=== PATIENT | male | born 1970 | race Caucasian/White ===

== ENCOUNTER 2020-01-15 11:15 | Day surgery (SDC) | payer OTHER ==
[2020-01-15] MEDS ORDERED: GI COCKTAIL 45 ML (Maalox/Lidocaine) PO ONE (11:37)
[2020-01-15] MEDS ORDERED: MORPHINE SULFATE 4 MG INJ IV ONE (11:37)
[2020-01-15] MEDS ORDERED: Zofran 4 MG/2 ML VIAL IV ONE (11:37)
[2020-01-15] MEDS ORDERED: Sodium Chloride 0.9% 1000 ML 1,000 ML IV STA (11:37)
--- NOTE | 2020-01-15 11:39 | ERPHSYRPT ---
- History of Present Illness Time Seen by Provider: 01/15/20 11:25 Historian: patient Patient Subjective Stated Complaint: Pt states that since he woke up this morning that he has vomited 3 times, broke out into a cold sweat, and is having really severe heartburn, ate crackers this morning and vomited them up Triage Nursing Assessment: Pt was brought to the ER by his daughter, pt appears uncomfortable in the medial lower gastric region, pain with palpatation to that area, hypertensive, no edema, no cough, rates pain 8-9/10, pulses normal Physician History: 49 years old generally healthy male presented in the ER with chief complaint of epigastric pain sudden onset around 6:45 AM which woke him up from sleep. Associated with nausea and 3 episodes of nonprojectile, nonbilious vomiting with no hematemesis. Patient described this as a dull aching to sharp pain which is aggravated with movements and palpation and no significant relieving factors. Currently patient is very nauseated. Denies any chest pain palpitations or shortness of breath. Denies any history of GERD/acid reflux. Timing/Duration: today, sudden, worse Activities at Onset: sleep Quality: aching, burning, sharpness Abdominal Pain Onset Location: LUQ, epigastric Pain Radiation: no radiation Severity of Pain-Max: severe Severity of Pain-Current: severe Modifying Factors: Improves With: movement Associated Symptoms: nausea, vomiting Previous symptoms: no prior history Allergies/Adverse Reactions: No Known Drug Allergies Allergy (Verified 01/15/20 11:29) Hx Influenza Vaccination/Date Given: No Hx Pneumococcal Vaccination/Date Given: No Travel Risk - International Travel Have you traveled outside of the country in past 3 weeks: No Have you or anyone close to you been diagnosed with or: No Do your reside in a community with a known COVID-19 case?: Yes If Yes where:: [place] - Coronavirus Screening Has patient experienced Coronavirus symptoms: No - Review of Systems Constitutional: No Symptoms Eyes: No Symptoms Ears, Nose, & Throat: No Symptoms Respiratory: No Symptoms Cardiac: No Symptoms Abdominal/Gastrointestinal: Abdominal Pain, Nausea, Vomiting Genitourinary Symptoms: No Symptoms Musculoskeletal: No Symptoms Skin: No Symptoms Neurological: No Symptoms Psychological: No Symptoms Endocrine: No Symptoms Hematologic/Lymphatic: No Symptoms Immunological/Allergic: No Symptoms - Past Medical History Pertinent Past Medical History: No - Past Surgical History Past Surgical History: Yes Male Surgical History: Vasectomy Other Surgical History: wisdom teeth removed, no problems with anesthesia - Social History Smoking Status: Never smoker Exposure to second hand smoke: No Drug Use: none Patient Lives Alone: No - Nursing Vital Signs Nursing Vital Signs: Initial Vital Signs Pulse Rate 61 01/15/20 11:19 Respiratory Rate 12 01/15/20 11:19 Blood Pressure 175/100 01/15/20 11:19 O2 Sat by Pulse Oximetry 100 01/15/20 11:19 Pain Scale Pain Intensity 6 - Physical Exam General Appearance: no apparent distress Eye Exam: PERRL/EOMI, eyes nml inspection Ears, Nose, Throat Exam: normal ENT inspection, pharynx normal Neck Exam: normal inspection, supple, full range of motion Respiratory Exam: normal breath sounds, lungs clear, No chest tenderness Cardiovascular Exam: regular rate/rhythm, normal heart sounds Gastrointestinal/Abdomen Exam: soft, normal bowel sounds, tenderness (Epigastric ), No distention, No guarding Back Exam: normal inspection Extremity Exam: normal inspection Neurologic Exam: alert, oriented x 3, cooperative, [employer] II-XII nml as tested, normal mood/affect Skin Exam: normal color SpO2 Interpretation: normal SpO2: 100 O2 Delivery: Room Air - Course Nursing assessment & vital signs reviewed: Yes EKG Interpreted by Me: RATE, Sinus Rhythm, NORMAL AXIS, NORMAL INTERVALS, NORMAL QRS Ordered Tests: Active Orders 24 hr Category Date Time Status EKG-ER Only STAT Care 01/15/20 11:37 Active IV Insertion STAT Care 01/15/20 11:37 Active NPO (ED) STAT Care 01/15/20 11:37 Active ABDOMEN AND PELVIS W CONTRAST [CT] Stat Exams 01/15/20 11:38 Completed GALLBLADDER [US] Stat Exams 01/15/20 14:37 Completed AMYLASE Stat Lab 01/15/20 12:30 Completed CBC W DIFF Stat Lab 01/15/20 12:30 Completed CMP Stat Lab 01/15/20 12:30 Completed LIPASE Stat Lab 01/15/20 12:30 Completed TROPONIN Q3H Lab 01/15/20 12:30 Completed TROPONIN Q3H Lab 01/15/20 14:45 Completed UA W/RFX UR CULTURE Stat Lab 01/15/20 13:04 Completed Medication Summary Generic Name Dose Route Start Last Admin Trade Name Freq PRN Reason Stop Dose Admin Sodium Chloride 1,000 mls @ 125 mls/hr 01/15/20 15:00 01/15/20 14:49 Sodium Chloride 0.9% 1000 Ml IV 02/14/20 14:59 125 mls/hr .Q8H ASHLEY Administration Discontinued Medications Generic Name Dose Route Start Last Admin Trade Name Freq PRN Reason Stop Dose Admin Al Hydrox/Mg Hydrox/Simethicone Confirm 01/15/20 11:44 Maalox Es 30 Ml Unit Dose Administered 01/15/20 11:45 Dose 30 ml .ROUTE .STK-MED ONE Bupivacaine HCl Confirm 01/15/20 17:09 Sensorcaine 0.25% 10 Ml Administered 01/15/20 17:10 Dose 10 ml .ROUTE .STK-MED ONE Cefazolin Sodium Confirm 01/15/20 17:16 Kefzol 1 Gm Administered 01/15/20 17:17 Dose 2 g .ROUTE .STK-MED ONE Dexamethasone Sodium Phosphate Confirm 01/15/20 16:33 Decadron 4 Mg Inj Administered 01/15/20 16:34 Dose 8 mg .ROUTE .STK-MED ONE Famotidine 20 mg 01/15/20 13:09 01/15/20 13:13 Pepcid 20 Mg Vial IV 01/15/20 13:10 20 mg STAT ONE Administration Famotidine Confirm 01/15/20 13:12 Pepcid 20 Mg Vial Administered 01/15/20 13:13 Dose 20 mg IV .STK-MED ONE Fentanyl Citrate Confirm 01/15/20 16:33 Sublimaze 100 Mcg/2 Ml Administered 01/15/20 16:34 Dose 100 mcg .ROUTE .STK-MED ONE Hydromorphone HCl 1 mg 01/15/20 13:09 01/15/20 13:11 Hydromorphone 1 Mg/Ml Ampule IV 01/15/20 13:10 1 mg STAT ONE Administration Hydromorphone HCl Confirm 01/15/20 13:10 Hydromorphone 1 Mg/Ml Ampule Administered 01/15/20 13:11 Dose 1 mg .ROUTE .STK-MED ONE Hydromorphone HCl 1 mg 01/15/20 15:27 01/15/20 15:37 Hydromorphone 1 Mg/Ml Ampule IV 01/15/20 15:28 1 mg STAT ONE Administration Hydromorphone HCl Confirm 01/15/20 15:36 Hydromorphone 1 Mg/Ml Ampule Administered 01/15/20 15:37 Dose 1 mg .ROUTE .STK-MED ONE Sodium Chloride 1,000 mls @ 999 mls/hr 01/15/20 11:37 01/15/20 13:20 Sodium Chloride 0.9% 1000 Ml IV 01/15/20 12:37 Infused .Q1H1M STA Infusion Sodium Chloride Confirm 01/15/20 11:44 Sodium Chloride 0.9% 1000 Ml Administered 01/15/20 11:45 Dose 1,000 mls @ ud .ROUTE .STK-MED ONE Sodium Chloride Confirm 01/15/20 14:47 Sodium Chloride 0.9% 1000 Ml Administered 01/15/20 14:48 Dose 1,000 mls @ ud .ROUTE .STK-MED ONE Lactated Ringer's Confirm 01/15/20 15:55 Lactated Ringers Administered 01/15/20 15:56 Dose 1,000 mls @ ud IV .STK-MED ONE Lactated Ringer's Confirm 01/15/20 17:09 Lactated Ringers Administered 01/15/20 17:10 Dose 1,000 mls @ ud IV .STK-MED ONE Ketorolac Tromethamine Confirm 01/15/20 16:33 Toradol 30 Mg Injection Administered 01/15/20 16:34 Dose 30 mg .ROUTE .STK-MED ONE Lidocaine HCl Confirm 01/15/20 11:43 Xylocaine Hcl Viscous * Administered 01/15/20 11:44 Dose 15 ml .ROUTE .STK-MED ONE Lidocaine HCl Confirm 01/15/20 16:33 Xylocaine-Mpf 2% 5 Ml Vial Administered 01/15/20 16:34 Dose 5 ml .ROUTE .STK-MED ONE Magnesium Hydroxide 45 ml 01/15/20 11:37 01/15/20 11:53 Gi Cocktail 45 Ml (Maalox/Lidocaine) PO 01/15/20 11:38 45 ml STAT ONE Administration Morphine Sulfate 4 mg 01/15/20 11:37 01/15/20 11:53 Morphine Sulfate 4 Mg Inj IV 01/15/20 11:38 4 mg STAT ONE Administration Morphine Sulfate Confirm 01/15/20 11:43 Morphine Sulfate 4 Mg Inj Administered 01/15/20 11:44 Dose 4 mg .ROUTE .STK-MED ONE Ondansetron HCl 4 mg 01/15/20 11:37 01/15/20 11:53 Zofran 4 Mg/2 Ml Vial IV 01/15/20 11:38 4 mg STAT ONE Administration Ondansetron HCl Confirm 01/15/20 11:43 Zofran 4 Mg/2 Ml Vial Administered 01/15/20 11:44 Dose 4 mg .ROUTE .STK-MED ONE Ondansetron HCl Confirm 01/15/20 16:32 Zofran 4 Mg/2 Ml Vial Administered 01/15/20 16:33 Dose 4 mg .ROUTE .STK-MED ONE Ondansetron HCl Confirm 01/15/20 16:33 Zofran 4 Mg/2 Ml Vial Administered 01/15/20 16:34 Dose 4 mg .ROUTE .STK-MED ONE Ondansetron HCl Confirm 01/15/20 18:42 Zofran 4 Mg/2 Ml Vial Administered 01/15/20 18:43 Dose 4 mg .ROUTE .STK-MED ONE Pantoprazole Sodium 40 mg 01/15/20 14:13 01/15/20 14:40 Protonix 40 Mg Iv IV 01/15/20 14:14 40 mg STAT ONE Administration Pantoprazole Sodium Confirm 01/15/20 14:38 Protonix 40 Mg Iv Administered 01/15/20 14:39 Dose 40 mg IV .STK-MED ONE Phenylephrine HCl Confirm 01/15/20 17:44 Phenylephrine Hcl Administered 01/15/20 17:45 Dose 10 mg .ROUTE .STK-MED ONE Propofol Confirm 01/15/20 16:33 Diprivan 200 Mg/20 Ml Administered 01/15/20 16:34 Dose 200 mg IV .STK-MED ONE Rocuronium [place] Confirm 01/15/20 16:33 Zemuron 100 Mg/10 Ml Administered 01/15/20 16:34 Dose 50 mg .ROUTE .STK-MED ONE Succinylcholine Chloride Confirm 01/15/20 16:33 Quelicin Fliptop 200 Mg/10 Ml Administered 01/15/20 16:34 Dose 100 mg .ROUTE .STK-MED ONE Sugammadex Sodium Confirm 01/15/20 16:33 Bridion 200mg/2ml Administered 01/15/20 16:34 Dose 200 mg IV .STK-MED ONE Lab/Rad Data: Laboratory Result Diagrams 01/15/20 12:30 01/15/20 12:30 Laboratory Results 01/15/20 01/15/20 01/15/20 Range/Units 14:45 13:04 12:30 WBC (4.0-10.5) K/mm3 RBC (4.1-5.6) M/mm3 Hgb (12.5-18.0) gm/dl Hct (42-50) % MCV (78-100) fl MCH (26-32) pg MCHC (32-36) g/dl RDW (11.5-14.0) % Plt Count (150-450) K/mm3 MPV (7.5-11.0) fl Gran % (36.0-66.0) % Eos # (Auto) (0-0.5) Absolute Lymphs (auto) (1.0-4.6) Absolute Monos (auto) (0.0-1.3) Lymphocytes % (24.0-44.0) % Monocytes % (0.0-12.0) % Eosinophils % (0.00-5.0) % Basophils % (0.0-0.4) % Absolute Granulocytes (1.4-6.9) Basophils # (0-0.4) Sodium (137-145) mmol/L Potassium (3.5-5.1) mmol/L Chloride (98-107) mmol/L Carbon Dioxide (22-30) mmol/L Anion Gap (5-15) MEQ/L BUN (9-20) mg/dL Creatinine (0.66-1.25) mg/dL Estimated GFR ML/MIN Glucose (74-106) mg/dL Calcium (8.4-10.2) mg/dL Total Bilirubin (0.2-1.3) mg/dL AST (17-59) U/L ALT (0-50) U/L Alkaline Phosphatase (38-126) U/L Troponin I < 0.012 < 0.012 (0.000-0.034) ng/mL Serum Total Protein (6.3-8.2) g/dL Albumin (3.5-5.0) g/dL Amylase (30-110) U/L Lipase (23-300) U/L Urine Color YELLOW (YELLOW) Urine Appearance CLEAR (CLEAR) Urine pH 6.0 (5-6) Ur Specific [place] 1.034 (1.005-1.025) Urine Protein NEGATIVE (Negative) Urine Ketones NEGATIVE (NEGATIVE) Urine Blood SMALL (0-5) Arnoldo/ul Urine Nitrite NEGATIVE (NEGATIVE) Urine Bilirubin NEGATIVE (NEGATIVE) Urine Urobilinogen NEGATIVE (0-1) mg/dL Ur Leukocyte Esterase NEGATIVE (NEGATIVE) Urine WBC (Auto) NONE (0-5) /HPF Urine RBC (Auto) NONE (0-2) /HPF U Epithel Cells (Auto) NONE (FEW) /HPF Urine Bacteria (Auto) NONE (NEGATIVE) /HPF Urine Mucus (Auto) SLIGHT (NEGATIVE) /HPF Urine Culture Reflexed NO (NO) Urine Glucose NEGATIVE (NEGATIVE) mg/dL 01/15/20 01/15/20 Range/Units 12:30 12:30 WBC 11.6 H (4.0-10.5) K/mm3 RBC 5.28 (4.1-5.6) M/mm3 Hgb 15.2 (12.5-18.0) gm/dl Hct 46.7 (42-50) % MCV 88.4 (78-100) fl MCH 28.8 (26-32) pg MCHC 32.5 (32-36) g/dl RDW 14.7 H (11.5-14.0) % Plt Count 288 (150-450) K/mm3 MPV 11.2 H (7.5-11.0) fl Gran % 81.6 H (36.0-66.0) % Eos # (Auto) 0.04 (0-0.5) Absolute Lymphs (auto) 1.42 (1.0-4.6) Absolute Monos (auto) 0.64 (0.0-1.3) Lymphocytes % 12.3 L (24.0-44.0) % Monocytes % 5.5 (0.0-12.0) % Eosinophils % 0.3 (0.00-5.0) % Basophils % 0.3 (0.0-0.4) % Absolute Granulocytes 9.45 H (1.4-6.9) Basophils # 0.04 (0-0.4) Sodium 140 (137-145) mmol/L Potassium 4.5 (3.5-5.1) mmol/L Chloride 101 (98-107) mmol/L Carbon Dioxide 30 (22-30) mmol/L Anion Gap 13.6 (5-15) MEQ/L BUN 17 (9-20) mg/dL Creatinine 0.75 (0.66-1.25) mg/dL Estimated GFR > 60.0 ML/MIN Glucose 125 H (74-106) mg/dL Calcium 9.4 (8.4-10.2) mg/dL Total Bilirubin 0.40 (0.2-1.3) mg/dL AST 24 (17-59) U/L ALT 33 (0-50) U/L Alkaline Phosphatase 98 (38-126) U/L Troponin I (0.000-0.034) ng/mL Serum Total Protein 7.4 (6.3-8.2) g/dL Albumin 4.1 (3.5-5.0) g/dL Amylase 46 (30-110) U/L Lipase 99 (23-300) U/L Urine Color (YELLOW) Urine Appearance (CLEAR) Urine pH (5-6) Ur Specific [place] (1.005-1.025) Urine Protein (Negative) Urine Ketones (NEGATIVE) Urine Blood (0-5) Arnoldo/ul Urine Nitrite (NEGATIVE) Urine Bilirubin (NEGATIVE) Urine Urobilinogen (0-1) mg/dL Ur Leukocyte Esterase (NEGATIVE) Urine WBC (Auto) (0-5) /HPF Urine RBC (Auto) (0-2) /HPF U Epithel Cells (Auto) (FEW) /HPF Urine Bacteria (Auto) (NEGATIVE) /HPF Urine Mucus (Auto) (NEGATIVE) /HPF Urine Culture Reflexed (NO) Urine Glucose (NEGATIVE) mg/dL - Progress Progress: pain not gone completely, re-examined Progress Note: 01/15/20 14:10 49 years old is evaluated for epigastric pain with vomiting. He is given IV fluid along with GI cocktail and pain medications, on reevaluation pain is not much improved and I have given him another dose of pain medication along with Pepcid and pain is improving but not completely gone. I have obtained EKG which showed sinus rhythm with no acute ST changes and I have repeated it after 2 hours with out any significant change. Unremarkable troponin and chemistries. White count is minimally elevated. I have obtained CT with contrast which showed hiatal hernia but no other acute intra-abdominal findings. Discussed with : Karsten Counseled pt/family regarding: lab results, diagnosis, need for follow-up, rad results - Departure Departure Disposition: Observation Clinical Impression: Hiatal hernia with gastroesophageal reflux disease and esophagitis, Gall stones Condition: Stable Critical Care Time: No
[2020-01-15] MEDS ORDERED: MORPHINE SULFATE 4 MG INJ ONE (11:43)
[2020-01-15] MEDS ORDERED: Zofran 4 MG/2 ML VIAL ONE ×4 (11:43→18:42)
[2020-01-15] MEDS ORDERED: XYLOCAINE HCl Viscous ONE (11:43)
[2020-01-15] MEDS ORDERED: Sodium Chloride 0.9% 1000 ML 1,000 ML ONE ×2 (11:44→14:47)
[2020-01-15] MEDS ORDERED: MAALOX ES 30 ML UNIT DOSE ONE (11:44)
--- NOTE | 2020-01-15 12:39 | XRAY ---
Indication: Epigastric pain and vomiting. Multiple contiguous axial images obtained through the abdomen and pelvis using 80 cc Isovue 370 contrast only. Comparison: None Lung bases are clear. Heart is borderline enlarged. Small hiatal hernia. Noncontrasted stomach and bowel loops appear nonobstructed. Normal appendix. Minimal sigmoid diverticulosis without diverticulitis. No free fluid/air. Mild diffusely fatty 20 cm hepatomegaly. 2.2 cm left midpole renal cyst. Remaining liver, gallbladder, pancreas, spleen, adrenal glands, kidneys, ureters, bladder, and aorta appear unremarkable. No pathologic retroperitoneal lymphadenopathy. Osseous structures intact with minimal degenerative changes throughout the spine and tiny multilevel thoracolumbar Schmorl nodes. 8 mm right innominate bone island adjacent to the SI joint. No ventral or inguinal hernias. Impression: 1. Small hiatal hernia, minimal sigmoid diverticulosis, left renal cyst, mild fatty hepatomegaly, and chronic bony findings. 2. Remaining CT abdomen/pelvis with contrast exam is negative.
[2020-01-15 12:50] LABS: Absolute Neutrophil Ct (ANC) 9.45 (1.4-6.9); BASOPHIL % 0.3 % (0.0-0.4); Basophil (Absolute #) 0.04 (0-0.4); Eosinophil % 0.3 % (0.00-5.0); Eosinophil (Absolute #) 0.04 (0-0.5); Hematocrit 46.7 % (42-50); Hemoglobin 15.2 gm/dl (12.5-18.0); Lymphocyte (Absolute #) 1.42 (1.0-4.6); Lymphocytes % 12.3 % (24.0-44.0); Mean Cell Volume 88.4 fl (78-100); Mean Corpuscular Hemoglobin 28.8 pg (26-32); Mean Corpuscular Hgb Concent. 32.5 g/dl (32-36); Mean Platelet Volume 11.2 fl (7.5-11.0); Monocyte (Absolute #) 0.64 (0.0-1.3); Monocytes % 5.5 % (0.0-12.0); Neutrophil % 81.6 % (36.0-66.0); Platelet Count 288 K/mm3 (150-450); Red Blood Count 5.28 M/mm3 (4.1-5.6); Red Cell Distribution Width 14.7 % (11.5-14.0); White Blood Count 11.6 K/mm3 (4.0-10.5)
[2020-01-15 13:00] LABS: ALBUMIN 4.1 g/dL (3.5-5.0); ALKALINE PHOSPHATASE 98 U/L (38-126); AMYLASE 46 U/L (30-110); ANION GAP 13.6 MEQ/L (5-15); BLOOD UREA NITROGEN 17 mg/dL (9-20); CHLORIDE 101 mmol/L (98-107); Calcium 9.4 mg/dL (8.4-10.2); Carbon Dioxide 30 mmol/L (22-30); Creatinine 1 0.75 mg/dL (0.66-1.25); Glucose 125 mg/dL (74-106); LIPASE 99 U/L (23-300); Potassium 4.5 mmol/L (3.5-5.1); SGOT/AST 24 U/L (17-59); SGPT/ALT 33 U/L (0-50); SODIUM 140 mmol/L (137-145); Total Protein 7.4 g/dL (6.3-8.2)
[2020-01-15] MEDS ORDERED: Hydromorphone 1 mg/ml Ampule IV ONE ×2 (13:09→15:27)
[2020-01-15] MEDS ORDERED: Pepcid 20 MG VIAL IV ONE ×2 (13:09→13:12)
[2020-01-15] MEDS ORDERED: Hydromorphone 1 mg/ml Ampule ONE ×2 (13:10→15:36)
[2020-01-15 13:45] LABS: Appearance CLEAR (CLEAR); Bilirubin NEGATIVE (NEGATIVE); Blood SMALL Ery/ul (0-5); Glucose NEGATIVE (NEGATIVE); Ketones NEGATIVE (NEGATIVE); Leukocyte Esterase NEGATIVE (NEGATIVE); Mucus SLIGHT /HPF (NEGATIVE); Nitrite NEGATIVE (NEGATIVE); Protein,Urine Dip NEGATIVE (Negative); Specific Gravity 1.034 (1.005-1.025); Urobilinogen NEGATIVE mg/dL (0-1)
[2020-01-15] MEDS ORDERED: PROTONIX 40 MG IV IV ONE ×2 (14:13→14:38)
[2020-01-15] MEDS ORDERED: Sodium Chloride 0.9% 1000 ML 1,000 ML IV SCH (15:00)
--- NOTE | 2020-01-15 15:34 | XRAY ---
Indication: Pain. Cholecystitis. Two-dimensional gallbladder sonogram performed. Comparison: None Gallbladder normally distended with a few tiny gallstones in the dependent portion, largest 1.5 cm. No abnormal gallbladder wall thickening or pericholecystic fluid. Common bile duct measures 3.9 mm. No intrahepatic biliary distention. Enlarged fatty liver measuring 20 cm in greatest dimension. Remaining visualized pancreas and right kidney sonographically unremarkable. Right kidney measures 13.8 cm in length. No ascites. Impression: Cholelithiasis without cholecystitis or biliary distention. Fatty hepatomegaly.
[2020-01-15] MEDS ORDERED: Lactated Ringers 1,000 ML IV ONE ×2 (15:55→17:09)
[2020-01-15] MEDS ORDERED: DIPRIVAN 200 MG/20 ML IV ONE (16:33)
[2020-01-15] MEDS ORDERED: BRIDION 200MG/2ML IV ONE (16:33)
[2020-01-15] MEDS ORDERED: Quelicin Fliptop 200 MG/10 ML ONE (16:33)
[2020-01-15] MEDS ORDERED: Xylocaine-Mpf 2% 5 Ml Vial ONE (16:33)
[2020-01-15] MEDS ORDERED: Zemuron 100 MG/10 ML ONE (16:33)
[2020-01-15] MEDS ORDERED: TORAdol 30 mg Injection ONE (16:33)
[2020-01-15] MEDS ORDERED: SUBLIMAZE 100 MCG/2 ML ONE (16:33)
[2020-01-15] MEDS ORDERED: Decadron 4 MG INJ ONE (16:33)
[2020-01-15] MEDS ORDERED: Sensorcaine 0.25% 10 ML ONE (17:09)
[2020-01-15] MEDS ORDERED: KEFZOL 1 GM ONE (17:16)
[2020-01-15] MEDS ORDERED: PHENYLEPHRINE HCL ONE (17:44)
[2020-01-15] MEDS ORDERED: Phenergan 25 MG INJ ONE (19:14)
[2020-01-15] MEDS ORDERED: NORCO 5/325 MG PO PRN (19:42)
[2020-01-15] MEDS ORDERED: MORPHINE SULFATE 4 MG INJ IV PRN (19:44)
[2020-01-15] MEDS ORDERED: Zofran 4 MG/2 ML VIAL IV PRN (19:44)
[2020-01-15] MEDS ORDERED: NORCO 5/325 MG ONE (20:35)
[2020-01-15 22:01] VITALS: BP 131/88; PULSE 78
[2020-01-15 22:03] VITALS: O2SAT 97
--- NOTE | 2020-01-18 07:57 | HP ---
CONSULT DATE: 01/15/2020 HISTORY: The patient is a 49 year-old gentleman with history of sleep apnea, a little bit overweight had pizza last night and had snack later. He developed some severe epigastric pain associated with some nausea. He had some vomiting. He has been under a lot of stress recently with multiple loans associated with his job. He came in and the emergency room worked him up. Initial CT was fairly unremarkable. He had a very small hiatal hernia, cyst on his kidney. There might be question whether he had stones in his gallbladder but they were not severely calcified. His cardiac etiology was ruled out per the emergency room physician. Troponins were negative. His liver function test and lipase were normal. I asked the emergency room to order a gallbladder ultrasound. He does have cholelithiasis, there was not significant wall thickening or fluid around the gallbladder but he had a 1.5 cm stone and some smaller stones. I came down to evaluate him. PAST MEDICAL HISTORY: Sleep apnea. He is a little bit overweight. He has some seasonal allergies. PAST SURGICAL HISTORY: He had an upper endoscopy in the past. ALLERGIES: NKDA. FAMILY HISTORY: Cardiomyopathy. Diabetes. Prostate cancer. History of some lymphoma. History of breast cancer in an aunt. Lung cancer in grandparents. SOCIAL HISTORY: He denies smoking. No alcohol abuse. REVIEW OF SYSTEMS: Fourteen systems reviewed. He had some back problems in the past. Otherwise as noted sleep apnea and he is a little bit overweight otherwise he denies any cardiac or chronic lung disease or other issues. PHYSICAL EXAMINATION: GENERAL: Uncomfortable. HEENT: Sclera nonicteric. NECK: No JVD. CHEST: Equal excursion, nonlabored breathing. CVS: Regular rhythm and pulse. ABDOMEN: He is a little bit overweight. He has got tenderness in epigastrium and over right upper quadrant over his gallbladder. EXTREMITIES: No significant edema. NEURO: Alert, moving extremities symmetrically. No gross motor deficits noted. IMPRESSION: Acute epigastric pain, normal liver function test. He has some gallstones but there is no wall thickening or pericholecystic fluid which often happens when there is severity of this pain. It has been unrelenting since early this morning. Question whether he could also have peptic ulcer disease, esophagitis, gastritis or other etiology in addition versus acute exacerbation of biliary colic, cholelithiasis. I had a long discussion with the patient risks and benefits. I feel he would benefit from upper endoscopy to rule out ulcer disease or other etiology as well as proceeding with laparoscopic cholecystectomy possible open. Risks and benefits explained in detail but not limited to bleeding or infection, risk of trocar injury or hernia, risk of bowel, bladder or blood vessel injury, small risk of bile leak, bile duct injury, retained stone or sludge possibly requiring further procedure either open or ERCP, general risk of anesthesia, deep venous thrombosis, pulmonary embolism, pneumonia, perioperative risk of aches, pains, bloating, constipation and/or loose stools possibly even chronic in nature, possibility of no improvement in his pain, possible need for open procedure as well as risk of endoscopy, risk of bowel injury, perforation or anesthesia, deep venous thrombosis, pulmonary embolism, pneumonia, possible inability to diagnose the etiology of his symptoms. He is agreeable. He prefers to go ahead and get his gallbladder out at the same time so will proceed with laparoscopic cholecystectomy possible open as well as EGD possible biopsy when OR time available.
--- NOTE | 2020-01-18 08:29 | OP ---
SURGERY DATE/TIME: 01/15/2020 7995 PREOPERATIVE DIAGNOSIS: Intractable epigastric right upper quadrant pain. POSTOPERATIVE DIAGNOSES: 1) Acute Exacerbation chronic cholecystitis, cholelithiasis, gallbladder hydrops. 2) Mild gastritis. 3) Minimal hiatal hernia. PROCEDURES: 1) Laparoscopic cholecystectomy. 2) Esophagogastroduodenoscopy with cold biopsy to the antrum. SURGEON: Dr. Anibal Montalvo. ANESTHESIA: General. ESTIMATED BLOOD LOSS: Minimal. INDICATIONS: As noted above. Risks and benefits explained in detail but not limited to and consent obtained. DESCRIPTION OF PROCEDURE AND FINDINGS: The patient is taken to the operating room. General anesthesia was induced. Abdomen prepped and draped in usual sterile fashion. As he had the intractable pain although the gallbladder ultrasound did not show wall thickening or pericholecystic fluid and only some tiny stones, with his degree of symptoms it was unclear whether he had ulcer disease or biliary colic given his symptoms. It was felt he would benefit from upper and lower endoscopy. He was taken to the operating room. Consent had been obtained. General anesthesia was induced. Abdomen prepped and draped in usual sterile fashion. After official time out and no disagreement with planned procedure, it was elected to avoid insufflation and extra gas in the stomach to avoid limiting the view laparoscopically, we did the gallbladder first. A transverse incision made at the supraumbilical area. Fascia grasped and pulled upward. Veress needle inserted and tested with saline. Pneumoperitoneum accomplished insufflating opening pressure of 0-15. A 5 mm bladeless port and camera inserted without difficulty followed by two - 5 mm right upper quadrant ports and 11 mm epigastric port as well as additional 12 port. The gallbladder was quite distended. Decompressed through separate stab wound along costal margin. 40 cc of hydrops removed allowing the gallbladder to be grasped. Dissected posterior, lateral to anterior fashion. It was quite significantly inflamed. Slowly and carefully cystic duct and main cystic artery isolated until the critical view obtained both anteriorly and posteriorly. Once this was accomplished, it was elected to use a large clipper. Therefore the 12 port had been placed in the epigastrium as the gallbladder was thick it was going to require large opening to get it out anyway. Once the critical view was obtained, cystic duct clipped x3 and divided in the usual fashion. The cystic artery clipped x3 and divided in the usual fashion. Gallbladder slowly and carefully dissected free from its dense attachment to liver bed, clipping additional oozing side branches off the cystic artery directly on the gallbladder wall as necessary. This took some time given his extensive inflammation it was slowly and carefully accomplished. Just prior to releasing from final attachments to the anterior edge of the liver, the liver bed re-inspected. Clips noted in place in cystic duct and cystic artery stump. No signs of any active bleeding or bile leakage. Gallbladder released from final attachments anterior edge of the liver and placed in the provided bag by the hospital, pulled up into epigastrium, decompressed of bile and then finally pulled free and passed off. The port was replaced. Copious amount of irrigation accomplished lateral to the liver and subhepatic space irrigating until clear. Liver bed re-inspected. Clips noted in place in cystic duct and cystic artery stumps. No signs of any active bleeding or bile leakage. It was felt there is no benefit from drain placement. At this point fascial defect 12 site in the epigastrium closed with puncture closure device with #1 Vicryl. Pneumoperitoneum decompressed. The wound was irrigated out. Skin incision closed with 4-0 Vicryl. Steri-Strips and sterile dressing applied. 0.25% Marcaine local injected along the skin incision fascial defect at the beginning of the procedure. There were no immediate complications. At this point we considered upper endoscopy to make sure he did not have peptic ulcer disease or other etiology of his symptoms. Therefore video gastroscope easily passed down the esophagus through the patent pyloric junction to the second and third portion of the duodenum. Duodenum and proximal duodenum were grossly unremarkable. No signs of any ulcers. Back in the stomach he had some minimal to mild gastritis. Cold biopsy was taken to evaluate for Helicobacter pylori. Good hemostasis noted. On retroflex, he had a very small hiatal hernia on CT scan that was hard to visualize this. There was definitely no significantly large hiatal hernia to warrant any surgical intervention. He had a little bit of debris in his stomach. No signs of any obvious ulcers, masses or mucosal lesions. Scope pulled back to the gastroesophageal junction. Z-line was fairly crisp. There was no evidence of any significant esophagitis or Swann's on endoscopic view. Gastroesophageal junction about 43 cm. The remainder of the esophagus grossly unremarkable. Stomach had been decompressed. The scope was withdrawn. The patient tolerated the procedure well. There were no immediate complications. Findings discussed with his over the phone as she was at work.
== END 2020-01-15 22:05 | disposition home or self-care (01) ==
LOC: ED 11:15 → SDC 16:01 → MED SURG 18:57 → UNDOADMOB 18:57 → MED SURG 19:00 → SDC 22:05
PROVIDERS: ATTEND Surgery
DX: K80.10 Calculus of gallbladder with chronic cholecystitis without obstruction (principal); K82.1 Hydrops of gallbladder; K29.70 Gastritis, unspecified, without bleeding; K44.9 Diaphragmatic hernia without obstruction or gangrene
CPT/HCPCS: 36000; 36415; 74177; 76705; 80053; 81001; 82150; 83690; 84484; 85025; 88304; 88305; 93005; 96360; 96374; 96375; 96376; 99284; J0330; J0690; J1100; J1170; J1885; J2270; J2370; J2405; J2550; J2704; J3010; A9270-GY

== ENCOUNTER 2020-02-10 09:46 | Emergency (ER) | payer OTHER ==
[2020-02-10 09:01] LABS: Mucus SLIGHT /HPF (NEGATIVE); RBC 0-2 /HPF (0-2)
[2020-02-10 09:02] LABS: Appearance CLEAR (CLEAR); Bilirubin LARGE (NEGATIVE); Glucose NEGATIVE (NEGATIVE); Ketones SMALL (NEGATIVE); Leukocyte Esterase NEGATIVE (NEGATIVE); Nitrite NEGATIVE (NEGATIVE); Protein,Urine Dip NEGATIVE (Negative); Specific Gravity 1.025 (1.005-1.025); Urobilinogen 8 mg/dL (0-1)
[2020-02-10 09:05] LABS: Absolute Neutrophil Ct (ANC) 6.64 (1.4-6.9); BASOPHIL % 0.4 % (0.0-0.4); Basophil (Absolute #) 0.04 (0-0.4); Eosinophil % 1.2 % (0.00-5.0); Eosinophil (Absolute #) 0.11 (0-0.5); Hematocrit 46.1 % (42-50); Lymphocyte (Absolute #) 1.25 (1.0-4.6); Lymphocytes % 13.9 % (24.0-44.0); Mean Corpuscular Hgb Concent. 32.5 g/dl (32-36); Mean Platelet Volume 10.8 fl (7.5-11.0); Monocyte (Absolute #) 0.96 (0.0-1.3); Monocytes % 10.7 % (0.0-12.0); Neutrophil % 73.8 % (36.0-66.0); Platelet Count 297 K/mm3 (150-450); Red Blood Count 5.18 M/mm3 (4.1-5.6); Red Cell Distribution Width 14.8 % (11.5-14.0)
[2020-02-10 09:19] LABS: ALBUMIN 4.5 g/dL (3.5-5.0); ALKALINE PHOSPHATASE 183 U/L (38-126); AMYLASE 42 U/L (30-110); ANION GAP 12.8 MEQ/L (5-15); BLOOD UREA NITROGEN 12 mg/dL (9-20); CHLORIDE 103 mmol/L (98-107); Calcium 9.5 mg/dL (8.4-10.2); Carbon Dioxide 29 mmol/L (22-30); Creatinine 1 0.77 mg/dL (0.66-1.25); Glucose 159 mg/dL (74-106); LIPASE 76 U/L (23-300); Potassium 3.9 mmol/L (3.5-5.1); SGOT/AST 287 U/L (17-59); SGPT/ALT 538 U/L (0-50); SODIUM 141 mmol/L (137-145)
--- NOTE | 2020-02-10 09:27 | XRAY ---
Indication: Abdomen pain. Status post cholecystectomy January 15, 2020. Multiple contiguous axial images obtained through the abdomen and pelvis without contrast as ordered. Comparison: January 15, 2020. Lung bases demonstrate minimal left base atelectasis/scarring. No infiltrate or effusion. Heart is not enlarged. Noncontrasted stomach and bowel loops appear nonobstructed. Normal appendix. There is now mild fecal debris predominantly in the descending colon and rectum. Status post cholecystectomy. No free fluid/air. Stable left renal cyst and fatty hepatomegaly. Remaining liver, pancreas, spleen, adrenal glands, kidneys, ureters, bladder, and aorta appear unremarkable for noncontrast exam. Osseous structures intact again with minimal degenerative changes throughout the thoracolumbar spine and subcentimeter right innominate bone island. Impression: 1. Status post cholecystectomy. No complications. 2. New mild fecal stasis with mild rectal impaction. 3. Stable left renal cyst, fatty hepatomegaly, and chronic bony findings.
--- NOTE | 2020-02-10 10:15 | ERPHSYRPT ---
- History of Present Illness Time Seen by Provider: 02/10/20 10:05 Historian: patient, family Exam Limitations: no limitations Physician History: This is a 49-year-old white male who underwent a laparoscopic cholecystectomy with out an intraoperative cholangiogram on January 15, [address] Ewing. Patient states that he was doing very well until approximately 2 nights ago when he started having some significant pain in the epigastric and right upper quadrant area. He stated felt much like his gallbladder attacks that he had prior to his cholecystectomy. Patient did contact Dr. Ewing who gave a prescription for pain medication as well as making arrangements for laboratory work-up and CAT scan of his abdomen and pelvis. That work-up was performed and completed this morning. Patient's liver enzymes are elevated. There is a concern of possible retained common bile duct stone. Patient was sent to the emergency department to help coordinate further care of this patient including possible transfer to a geospatial information scientist to arrange for a ERCP. Patient denies chest pain and denies shortness of air. Patient denies vomiting or diarrhea. The last time the patient drink any fluid was last night. The last type of oral intake at all was 2 cups of pudding this morning at 6 AM. Timing/Duration: day(s) (2) Quality: aching, fullness, sharpness Abdominal Pain Onset Location: RUQ, epigastric Pain Radiation: no radiation Severity of Pain-Max: moderate Severity of Pain-Current: mild Associated Symptoms: No diarrhea, No nausea, No shortness of breath, No vomiting Previous symptoms: same symptoms as today Allergies/Adverse Reactions: No Known Drug Allergies Allergy (Verified 02/10/20 10:10) Hx Influenza Vaccination/Date Given: No Hx Pneumococcal Vaccination/Date Given: No Travel Risk - International Travel Have you traveled outside of the country in past 3 weeks: No (N) Have you or anyone close to you been diagnosed with or: No Do your reside in a community with a known COVID-19 case?: Yes If Yes where:: [place] - Review of Systems Constitutional: No Symptoms Eyes: No Symptoms Ears, Nose, & Throat: No Symptoms Respiratory: No Symptoms Cardiac: No Symptoms Abdominal/Gastrointestinal: Abdominal Pain (Epigastric and right upper quadrant abdominal pain), No Nausea, No Vomiting, No Diarrhea Genitourinary Symptoms: No Symptoms Musculoskeletal: No Symptoms Skin: No Symptoms Neurological: No Symptoms Psychological: No Symptoms Endocrine: No Symptoms Hematologic/Lymphatic: No Symptoms Immunological/Allergic: No Symptoms All Other Systems: Reviewed and Negative - Past Medical History Pertinent Past Medical History: No Neurological History: No Pertinent History ENT History: No Pertinent History Cardiac History: No Pertinent History Respiratory History: No Pertinent History Endocrine Medical History: No Pertinent History Musculoskeletal History: No Pertinent History GI Medical History: No Pertinent History History: No Pertinent History Psycho-Social History: No Pertinent History Male Reproductive Disorders: No Pertinent History - Past Surgical History Past Surgical History: Yes Neuro Surgical History: No Pertinent History Cardiac: No Pertinent History Respiratory: No Pertinent History Gastrointestinal: Cholecystectomy Genitourinary: No Pertinent History Musculoskeletal: No Pertinent History Male Surgical History: Vasectomy Other Surgical History: wisdom teeth removed, no problems with anesthesia - Social History Smoking Status: Never smoker Exposure to second hand smoke: No Drug Use: none Patient Lives Alone: No - Nursing Vital Signs Nursing Vital Signs: Initial Vital Signs Temperature 98.1 F 02/10/20 09:59 Pulse Rate 71 02/10/20 09:59 Respiratory Rate 18 02/10/20 09:59 Blood Pressure 159/97 02/10/20 09:59 O2 Sat by Pulse Oximetry 97 02/10/20 09:59 Pain Scale Pain Intensity 6 - Physical Exam General Appearance: no apparent distress, alert, anxiety Eye Exam: PERRL/EOMI, eyes nml inspection (Hold) Ears, Nose, Throat Exam: normal ENT inspection, moist mucous membranes Neck Exam: normal inspection, non-tender, supple, full range of motion Respiratory Exam: normal breath sounds, lungs clear, No chest tenderness, No respiratory distress, No airway intact Cardiovascular Exam: regular rate/rhythm, normal heart sounds, normal peripheral pulses Gastrointestinal/Abdomen Exam: soft, normal bowel sounds, tenderness (Right upper quadrant and epigastric), No guarding, No rebound Rectal Exam: not done Back Exam: normal inspection, normal range of motion, No CVA tenderness, No vertebral tenderness Extremity Exam: normal inspection, normal range of motion, pelvis stable Neurologic Exam: alert, oriented x 3, cooperative, seed cleaner operator II-XII nml as tested, normal mood/affect, nml cerebellar function, nml station & gait, sensation nml Skin Exam: normal color, warm, dry Lymphatic Exam: No adenopathy SpO2 Interpretation: normal O2 Delivery: Room Air - Course Nursing assessment & vital signs reviewed: Yes Ordered Tests: Active Orders 24 hr Category Date Time Status ABDOMEN AND PELVIS W/0 CONTRAS [CT] Routine Exams 02/10/20 08:55 Completed AMYLASE Stat Lab 02/10/20 08:33 Completed CBC W DIFF Stat Lab 02/10/20 08:33 Completed CMP Stat Lab 02/10/20 08:33 Completed CULTURE,URINE Stat Lab 02/10/20 08:33 Received LIPASE Stat Lab 02/10/20 08:33 Completed Medication Summary Discontinued Medications Generic Name Dose Route Start Last Admin Trade Name Andrésq PRN Reason Stop Dose Admin Hydromorphone HCl 1 mg 02/10/20 11:03 02/10/20 11:09 Hydromorphone 1 Mg/Ml Ampule IM 02/10/20 11:04 1 mg STAT ONE Administration Hydromorphone HCl Confirm 02/10/20 11:08 Hydromorphone 1 Mg/Ml Ampule Administered 02/10/20 11:09 Dose 1 mg .ROUTE .STK-MED ONE Ondansetron HCl 4 mg 02/10/20 11:03 02/10/20 11:09 Zofran Odt 4 Mg PO 02/10/20 11:04 4 mg STAT ONE Administration Ondansetron HCl Confirm 02/10/20 11:07 Zofran Odt 4 Mg Administered 02/10/20 11:08 Dose 4 mg .ROUTE .STK-MED ONE Lab/Rad Data: Laboratory Result Diagrams 02/10/20 08:33 02/10/20 08:33 Laboratory Results 02/10/20 02/10/20 02/10/20 Range/Units 08:33 08:33 08:33 WBC 9.0 (4.0-10.5) K/mm3 RBC 5.18 (4.1-5.6) M/mm3 Hgb 15.0 (12.5-18.0) gm/dl Hct 46.1 (42-50) % MCV 89.0 (78-100) fl MCH 29.0 (26-32) pg MCHC 32.5 (32-36) g/dl RDW 14.8 H (11.5-14.0) % Plt Count 297 (150-450) K/mm3 MPV 10.8 (7.5-11.0) fl Gran % 73.8 H (36.0-66.0) % Eos # (Auto) 0.11 (0-0.5) Absolute Lymphs (auto) 1.25 (1.0-4.6) Absolute Monos (auto) 0.96 (0.0-1.3) Lymphocytes % 13.9 L (24.0-44.0) % Monocytes % 10.7 (0.0-12.0) % Eosinophils % 1.2 (0.00-5.0) % Basophils % 0.4 (0.0-0.4) % Absolute Granulocytes 6.64 (1.4-6.9) Basophils # 0.04 (0-0.4) Sodium 141 (137-145) mmol/L Potassium 3.9 (3.5-5.1) mmol/L Chloride 103 (98-107) mmol/L Carbon Dioxide 29 (22-30) mmol/L Anion Gap 12.8 (5-15) MEQ/L BUN 12 (9-20) mg/dL Creatinine 0.77 (0.66-1.25) mg/dL Estimated GFR > 60.0 ML/MIN Glucose 159 H (74-106) mg/dL Calcium 9.5 (8.4-10.2) mg/dL Total Bilirubin 5.10 H (0.2-1.3) mg/dL AST 287 H (17-59) U/L ALT 538 H (0-50) U/L Alkaline Phosphatase 183 H (38-126) U/L Serum Total Protein 8.0 (6.3-8.2) g/dL Albumin 4.5 (3.5-5.0) g/dL Amylase 42 (30-110) U/L Lipase 76 (23-300) U/L Urine Color DARK YELLOW (YELLOW) Urine Appearance CLEAR (CLEAR) Urine pH 5.0 (5-6) Ur Specific [place] 1.025 (1.005-1.025) Urine Protein NEGATIVE (Negative) Urine Ketones SMALL (NEGATIVE) Urine Blood 5-10 (0-5) Arnoldo/ul Urine Nitrite NEGATIVE (NEGATIVE) Urine Bilirubin LARGE (NEGATIVE) Urine Urobilinogen 8 (0-1) mg/dL Ur Leukocyte Esterase NEGATIVE (NEGATIVE) Urine WBC (Auto) NONE (0-5) /HPF Urine RBC (Auto) 0-2 (0-2) /HPF U Epithel Cells (Auto) NONE (FEW) /HPF Urine Bacteria (Auto) NONE (NEGATIVE) /HPF Urine Mucus (Auto) SLIGHT (NEGATIVE) /HPF Urine Glucose NEGATIVE (NEGATIVE) mg/dL - Progress Progress: improved Progress Note: 02/10/20 10:20 Patient was asked if he wanted anything for pain control. He denies needing anything at this time. He was also asked if he wanted anything for nausea control. Patient states that he is not nauseated and declines. 02/10/20 10:25 The report of the noncontrast CAT scan of the abdomen and pelvis was reviewed. There was no evidence of any intra-abdominal fluid or free air present. No acute intra-abdominal findings present 02/10/20 10:29 I reviewed the results of this morning's postcholecystectomy laboratory work- up. The patient's urinalysis shows dark urine with a large amount of bilirubin present. His total bilirubin is 5.1, his AST is 287, his ALT is 538, and his alkaline phosphatase is 183. All those results are elevated. 02/10/20 11:29 I spoke with the geospatial information scientist Dr. Emerson. I reviewed the patient history, laboratory data and CAT scan results. He stated to transfer the patient to [facility]. Contact the hospitalist and have them consult him for possible ERCP/MRCP. Patient is to remain n.p.o. 02/10/20 11:32 Patient and want to travel via private vehicle to [place]. I think the patient is stable enough to do so. He will signed the appropriate forms. Counseled pt/family regarding: lab results, need for follow-up, rad results - Departure Departure Disposition: Transfer Clinical Impression: Postoperative abdominal pain, Elevated liver enzymes Condition: Stable Critical Care Time: No Referrals: IESHA OBREGON MD [Primary Care Provider] - Additional Instructions: Do not eat or drink anything. Go directly to [facility] as discussed.
[2020-02-10] MEDS ORDERED: ZOFRAN ODT 4 MG PO ONE (11:03)
[2020-02-10] MEDS ORDERED: Hydromorphone 1 mg/ml Ampule IM ONE (11:03)
[2020-02-10] MEDS ORDERED: ZOFRAN ODT 4 MG ONE (11:07)
[2020-02-10] MEDS ORDERED: Hydromorphone 1 mg/ml Ampule ONE (11:08)
[2020-02-10 11:33] VITALS: BP 145/84; O2SAT 94
[2020-02-10 12:13] VITALS: PULSE 65
== END 2020-02-10 12:11 | disposition short-term general hospital (02) ==
LOC: EDSTATUS 09:46 → ED 09:46
DX: G89.18 Other acute postprocedural pain (principal); K91.5 Postcholecystectomy syndrome; R74.8 Abnormal levels of other serum enzymes; F45.42 Pain disorder with related psychological factors
CPT/HCPCS: 36415; 74176; 80053; 81001; 82150; 83690; 85025; 87086; 96372; 99285; J1170; Q0162

== ENCOUNTER 2021-12-18 06:28 | Emergency (ER) | payer OTHER ==
[2021-12-18] MEDS ORDERED: Sodium Chloride 0.9% 1000 ML 1,000 ML IV SCH (07:30)
--- NOTE | 2021-12-18 07:38 | ERPHSYRPT ---
- History of Present Illness Time Seen by Provider: 12/18/21 07:20 Source: patient, family Exam Limitations: no limitations Patient Subjective Stated Complaint: Pt states that he has been dizzy about every other day since last Saturday, it was bad yesterday morning and then the worse this morning at approx 0500 Triage Nursing Assessment: Pt brought to the ER by his , hypertensive, dizzy, photophobia, blood sugar 226, hx of migraines, nausea, denies vomiting, disoriented, diaphoresis upon wakening but went away after eating, last 2 times dizziness was in the morning but before it had been in the afternoon, pt is on erythromycin for a cough Physician History: This is a 51-year-old white male patient of Dr. Obregon who has had every other morning dizziness. This morning was the worst episode with associated dis orientation that was brief and diaphoresis which was also brief upon awakening but resolved swiftly after eating. Patient denies chest pain he denies shortness of breath. He denies any recent trauma to his head. He has not had anything like this in the past. He does have a history of migraine headaches. Patient was placed on erythromycin recently for treatment of bronchitis. There have been no other new medications. his blood sugar here this morning the emergency department is 226 Timing/Duration: day(s) (6), intermittent Severity: moderate Character of Deficits: none Deficits: no difficulties Baseline/Normal Cognition: alert oriented x 3 Current Cognition: alert oriented x 3 Baseline Gait: walks w/o assistance Associated Symptoms: denies symptoms Allergies/Adverse Reactions: No Known Drug Allergies Allergy (Verified 12/18/21 07:20) Hx Tetanus, Diphtheria Vaccination/Date Given: No Hx Influenza Vaccination/Date Given: No Hx Pneumococcal Vaccination/Date Given: No Travel Risk - International Travel Have you traveled outside of the country in past 3 weeks: No - Coronavirus Screening Are you exhibiting any of the following symptoms?: No Close contact with a COVID-19 positive Pt in past 14-21 Days: No - Vaccine Status Have you recieved a Covid-19 vaccination: Yes 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: [employer] - Vaccination Dates Date of 2cond Vaccination (if applicable): 12/2020 - Review of Systems Constitutional: No Symptoms Eyes: No Symptoms Ears, Nose, & Throat: No Symptoms Respiratory: No Symptoms Cardiac: No Symptoms Abdominal/Gastrointestinal: No Symptoms Genitourinary Symptoms: No Symptoms Musculoskeletal: No Symptoms Skin: No Symptoms Neurological: Dizziness Psychological: No Symptoms Endocrine: No Symptoms Hematologic/Lymphatic: No Symptoms Immunological/Allergic: No Symptoms All Other Systems: Reviewed and Negative - Past Medical History Pertinent Past Medical History: Yes Neurological History: Migraines ENT History: No Pertinent History Cardiac History: No Pertinent History Respiratory History: Sleep Apnea Endocrine Medical History: Other Musculoskeletal History: No Pertinent History GI Medical History: No Pertinent History History: No Pertinent History Psycho-Social History: No Pertinent History Male Reproductive Disorders: No Pertinent History Other Medical History: GALL BLADDER SURGERY, - Past Surgical History Past Surgical History: Yes Neuro Surgical History: No Pertinent History Cardiac: No Pertinent History Respiratory: No Pertinent History Gastrointestinal: Cholecystectomy Genitourinary: No Pertinent History Musculoskeletal: No Pertinent History Male Surgical History: Vasectomy Other Surgical History: wisdom teeth removed, no problems with anesthesia - Social History Smoking Status: Never smoker Exposure to second hand smoke: No Drug Use: none Patient Lives Alone: No - Nursing Vital Signs Nursing Vital Signs: Initial Vital Signs Temperature 98.2 F 12/18/21 07:04 Pulse Rate 73 12/18/21 07:04 Respiratory Rate 14 12/18/21 07:04 Blood Pressure 143/87 12/18/21 07:04 O2 Sat by Pulse Oximetry 97 12/18/21 07:04 Pain Scale Pain Intensity 0 - [place] Coma Scale Best Eye Response ([place]): (4) open spontaneously Best Verbal Response ([place]): (5) oriented Best Motor Response ([place]): (6) obeys commands [place] Total: 15 - Physical Exam General Appearance: no apparent distress, alert, anxiety Eye Exam: bilateral eye: normal inspection, PERRL, EOMI Ears, Nose, Throat Exam: normal ENT inspection, TMs normal, pharynx normal, moist mucous membranes Neck Exam: normal inspection, non-tender, supple, full range of motion Respiratory: normal breath sounds, lungs clear, airway intact, No chest tenderness, No respiratory distress Cardiovascular: regular rate/rhythm, normal heart sounds, normal peripheral pulses Gastrointestinal: soft, normal bowel sounds, No tenderness Rectal Exam: not done Back Exam: normal inspection, normal range of motion, No CVA tenderness, No vertebral tenderness Extremity Exam: normal inspection, normal range of motion, pelvis stable Mental Status: alert, oriented x 3, 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 There were no changes on today's EKG when compared to EKG dated 01/15/2020) Ordered Tests: Active Orders 24 hr Category Date Time Status Clean Catch Urine Specimen STAT Care 12/18/21 07:28 Active EKG-ER Only STAT Care 12/18/21 07:28 Active IV Insertion STAT Care 12/18/21 07:28 Active HEAD WITHOUT CONTRAST [CT] Stat Exams 12/18/21 07:29 Completed CBC W DIFF Stat Lab 12/18/21 07:50 Completed CMP Stat Lab 12/18/21 07:50 Completed ETHYL ALCOHOL Stat Lab 12/18/21 07:50 Completed LIPID PROFILE Stat Lab 12/18/21 09:19 Ordered MAGNESIUM Stat Lab 12/18/21 07:50 Completed POCT GLUCOSE Stat Lab 12/18/21 07:15 Completed T4 (Thyroxine) Stat Lab 12/18/21 Ordered TROPONIN Q3H Lab 12/18/21 07:50 Completed TROPONIN Q3H Lab 12/18/21 10:30 Ordered TROPONIN Q3H Lab 12/18/21 13:30 Ordered TROPONIN Q3H Lab 12/18/21 16:30 Ordered TROPONIN Q3H Lab 12/18/21 19:30 Ordered TSH [TSH, 3RD Generation] Stat Lab 12/18/21 09:18 Ordered Urine Triage Profile Stat Lab 12/18/21 07:59 Completed Medication Summary Generic Name Dose Route Start Last Admin Trade Name Freq PRN Reason Stop Dose Admin Sodium Chloride 1,000 mls @ 100 mls/hr 12/18/21 07:30 12/18/21 07:45 Sodium Chloride 0.9% 1000 Ml IV 01/17/22 07:29 100 mls/hr .Q10H ASHLEY Administration Discontinued Medications Generic Name Dose Route Start Last Admin Trade Name Freq PRN Reason Stop Dose Admin Meclizine HCl 25 mg 12/18/21 09:18 Meclizine Hcl 25 Mg Tablet PO 04/11/22 09:19 STAT ONE Lab/Rad Data: Laboratory Result Diagrams 12/18/21 07:50 12/18/21 07:50 Laboratory Results 12/18/21 12/18/21 12/18/21 Range/Units 07:59 07:59 07:50 WBC (4.0-10.5) K/mm3 RBC (4.1-5.6) M/mm3 Hgb (12.5-18.0) gm/dl Hct (42-50) % MCV (78-100) fl MCH (26-32) pg MCHC (32-36) g/dl RDW (11.5-14.0) % Plt Count (150-450) K/mm3 MPV (7.5-11.0) fl Gran % (36.0-66.0) % Eos # (Auto) (0-0.5) Absolute Lymphs (auto) (1.0-4.6) Absolute Monos (auto) (0.0-1.3) Lymphocytes % (24.0-44.0) % Monocytes % (0.0-12.0) % Eosinophils % (0.00-5.0) % Basophils % (0.0-0.4) % Absolute Granulocytes (1.4-6.9) Basophils # (0-0.4) Sodium (137-145) mmol/L Potassium (3.5-5.1) mmol/L Chloride (98-107) mmol/L Carbon Dioxide (22-30) mmol/L Anion Gap (5-15) MEQ/L BUN (9-20) mg/dL Creatinine (0.66-1.25) mg/dL Estimated GFR ML/MIN Glucose (74-106) mg/dL POC Glucometer (74 to 106) mg/dL Calcium (8.4-10.2) mg/dL Magnesium (1.6-2.3) mg/dL Total Bilirubin (0.2-1.3) mg/dL AST (17-59) U/L ALT (0-50) U/L Alkaline Phosphatase (38-126) U/L Troponin I < 0.012 (0.000-0.034) ng/mL Serum Total Protein (6.3-8.2) g/dL Albumin (3.5-5.0) g/dL Urinalys Dipstick Clnc Pending Urine Color YELLOW (YELLOW) Urine Appearance CLEAR (CLEAR) Urine pH 5.5 (5-6) Ur Specific [place] >=1.030 (1.005-1.025) POC Urine Protein Conf NEGATIVE (Negative) Urine Ketones NEGATIVE (NEGATIVE) Urine Nitrite NEGATIVE (NEGATIVE) Urine Bilirubin NEGATIVE (NEGATIVE) Urine Urobilinogen 0.2 (0-1) mg/dL Urine Leukocytes NEGATIVE (NEGATIVE) Urine WBC (Auto) 0-2 (0-5) /HPF Urine RBC NEGATIVE (0-5) Arnoldo/ul Urine Mucus (Auto) MODERATE (NEGATIVE) /HPF Ur Culture Indicated? NO Urine Glucose 250 (NEGATIVE) mg/dL Urine Opiates Level NEGATIVE (NEGATIVE) Ur Methadone NEGATIVE (NEGATIVE) Urine Barbiturates NEGATIVE (NEGATIVE) Ur Phencyclidine (PCP) NEGATIVE (NEGATIVE) Urine Amphetamine NEGATIVE (NEGATIVE) U Benzodiazepine Level NEGATIVE (NEGATIVE) Urine Cocaine NEGATIVE (NEGATIVE) Urine Marijuana (THC) NEGATIVE (NEGATIVE) Ethyl Alcohol (0-10) mg/dL 12/18/21 12/18/21 12/18/21 Range/Units 07:50 07:50 07:15 WBC 7.9 (4.0-10.5) K/mm3 RBC 4.80 (4.1-5.6) M/mm3 Hgb 14.0 (12.5-18.0) gm/dl Hct 42.5 (42-50) % MCV 88.5 (78-100) fl MCH 29.2 (26-32) pg MCHC 32.9 (32-36) g/dl RDW 14.7 H (11.5-14.0) % Plt Count 265 (150-450) K/mm3 MPV 11.1 H (7.5-11.0) fl Gran % 60.4 (36.0-66.0) % Eos # (Auto) 0.27 (0-0.5) Absolute Lymphs (auto) 1.99 (1.0-4.6) Absolute Monos (auto) 0.82 (0.0-1.3) Lymphocytes % 25.2 (24.0-44.0) % Monocytes % 10.4 (0.0-12.0) % Eosinophils % 3.4 (0.00-5.0) % Basophils % 0.6 (0.0-0.4) % Absolute Granulocytes 4.76 (1.4-6.9) Basophils # 0.05 (0-0.4) Sodium 139 (137-145) mmol/L Potassium 4.0 (3.5-5.1) mmol/L Chloride 103 (98-107) mmol/L Carbon Dioxide 25 (22-30) mmol/L Anion Gap 14.2 (5-15) MEQ/L BUN 18 (9-20) mg/dL Creatinine 0.67 (0.66-1.25) mg/dL Estimated GFR > 60.0 ML/MIN Glucose 242 H (74-106) mg/dL POC Glucometer 226 H (74 to 106) mg/dL Calcium 8.6 (8.4-10.2) mg/dL Magnesium 2.1 (1.6-2.3) mg/dL Total Bilirubin 0.40 (0.2-1.3) mg/dL AST 26 (17-59) U/L ALT 33 (0-50) U/L Alkaline Phosphatase 74 (38-126) U/L Troponin I (0.000-0.034) ng/mL Serum Total Protein 6.3 (6.3-8.2) g/dL Albumin 3.7 (3.5-5.0) g/dL Urinalys Dipstick Clnc Urine Color (YELLOW) Urine Appearance (CLEAR) Urine pH (5-6) Ur Specific [place] (1.005-1.025) POC Urine Protein Conf (Negative) Urine Ketones (NEGATIVE) Urine Nitrite (NEGATIVE) Urine Bilirubin (NEGATIVE) Urine Urobilinogen (0-1) mg/dL Urine Leukocytes (NEGATIVE) Urine WBC (Auto) (0-5) /HPF Urine RBC (0-5) Arnoldo/ul Urine Mucus (Auto) (NEGATIVE) /HPF Ur Culture Indicated? Urine Glucose (NEGATIVE) mg/dL Urine Opiates Level (NEGATIVE) Ur Methadone (NEGATIVE) Urine Barbiturates (NEGATIVE) Ur Phencyclidine (PCP) (NEGATIVE) Urine Amphetamine (NEGATIVE) U Benzodiazepine Level (NEGATIVE) Urine Cocaine (NEGATIVE) Urine Marijuana (THC) (NEGATIVE) Ethyl Alcohol < 10 (0-10) mg/dL - Departure Departure Disposition: Home Clinical Impression: Dizziness Condition: Stable Critical Care Time: No Referrals: IESHA OBREGON MD [Primary Care Provider] - Follow up/PCP as directed Additional Instructions: follow up with dr. obregon today by phone to make arrangements for further evaluation and management. take medications as prescribed Prescriptions: Meclizine HCl 25 mg [Antivert 25 mg] 25 mg PO Q8H PRN #10 tablet PRN Reason: Dizziness
[2021-12-18] MEDS ORDERED: Sodium Chloride 0.9% 1000 ML 1,000 ML ONE (07:44)
[2021-12-18 08:17] LABS: Mucus MODERATE /HPF (NEGATIVE); WBC 0-2 /HPF (0-5)
[2021-12-18 08:18] LABS: Appearance CLEAR (CLEAR); Bilirubin NEGATIVE (NEGATIVE); Ketones NEGATIVE (NEGATIVE); Nitrite NEGATIVE (NEGATIVE); Ph 5.5 (5-6); Protein,Urine Dip NEGATIVE (Negative); RBC NEGATIVE Ery/ul (0-5); Specific Gravity >=1.030 (1.005-1.025); Urobilinogen 0.2 mg/dL (0-1)
[2021-12-18 08:19] LABS: Glucose 250 mg/dL (NEGATIVE)
[2021-12-18 08:20] LABS: Urine Cultured Indicated? NO
[2021-12-18 08:21] LABS: ALBUMIN 3.7 g/dL (3.5-5.0); ALKALINE PHOSPHATASE 74 U/L (38-126); ANION GAP 14.2 MEQ/L (5-15); BLOOD UREA NITROGEN 18 mg/dL (9-20); CHLORIDE 103 mmol/L (98-107); Calcium 8.6 mg/dL (8.4-10.2); Carbon Dioxide 25 mmol/L (22-30); Creatinine 1 0.67 mg/dL (0.66-1.25); EST GLOMERULAR FILTRATION RATE > 60.0 ML/MIN; ETHYL ALCOHOL < 10 mg/dL (0-10); Glucose 242 mg/dL (74-106); MAGNESIUM 2.1 mg/dL (1.6-2.3); SGOT/AST 26 U/L (17-59); SGPT/ALT 33 U/L (0-50); SODIUM 139 mmol/L (137-145); Total Protein 6.3 g/dL (6.3-8.2)
[2021-12-18 08:24] LABS: Absolute Neutrophil Ct (ANC) 4.76 (1.4-6.9); Basophil (Absolute #) 0.05 (0-0.4); Eosinophil % 3.4 % (0.00-5.0); Eosinophil (Absolute #) 0.27 (0-0.5); Hematocrit 42.5 % (42-50); Lymphocyte (Absolute #) 1.99 (1.0-4.6); Lymphocytes % 25.2 % (24.0-44.0); Mean Cell Volume 88.5 fl (78-100); Mean Corpuscular Hemoglobin 29.2 pg (26-32); Mean Corpuscular Hgb Concent. 32.9 g/dl (32-36); Mean Platelet Volume 11.1 fl (7.5-11.0); Monocyte (Absolute #) 0.82 (0.0-1.3); Monocytes % 10.4 % (0.0-12.0); Neutrophil % 60.4 % (36.0-66.0); Platelet Count 265 K/mm3 (150-450); Red Cell Distribution Width 14.7 % (11.5-14.0); White Blood Count 7.9 K/mm3 (4.0-10.5)
--- NOTE | 2021-12-18 08:42 | XRAY ---
Indication: Dizziness 1 week. Multiple contiguous axial images obtained through the head without contrast. Comparison: None Normal appearing brain parenchyma, ventricles, and bony calvarium. Visualized paranasal sinuses and mastoid air cells are clear. Impression: Normal CT head without contrast exam.
[2021-12-18 09:01] LABS: Amphetamine,Urine NEGATIVE (NEGATIVE); Barbiturate,Urine NEGATIVE (NEGATIVE); Benzodiazepine,Urine NEGATIVE (NEGATIVE); Cocaine,Urine NEGATIVE (NEGATIVE); Methadone,Urine NEGATIVE (NEGATIVE); Opiate,Urine NEGATIVE (NEGATIVE); PCP,Urine NEGATIVE (NEGATIVE); THC,Urine NEGATIVE (NEGATIVE)
[2021-12-18] MEDS ORDERED: ANTIVERT 25 MG PO ONE (09:18)
[2021-12-18] MEDS ORDERED: ANTIVERT 25 MG ONE (09:25)
[2021-12-18 09:27] VITALS: BP 129/84; PULSE 71; O2SAT 96
[2021-12-18 09:49] LABS: Risk Ratio 4.9
[2021-12-18 11:14] LABS: Dipstick done @ ? MAIN LAB
== END 2021-12-18 09:38 | disposition home or self-care (01) ==
LOC: ED 06:28
DX: R42 Dizziness and giddiness (principal); R73.9 Hyperglycemia, unspecified
CPT/HCPCS: 36415; 70450; 80053; 80061; 80307; 81015; 82947; 83036; 83721; 83735; 84436; 84443; 84484; 85025; 93005; 99284; A9270-GY; G0480

== ENCOUNTER 2022-08-14 16:52 | Emergency (ER) | payer OTHER ==
[2022-08-14] MEDS ORDERED: BABY ASPIRIN 81 MG CHEW PO ONE (16:57)
--- NOTE | 2022-08-14 16:58 | ERPHSYRPT ---
- History of Present Illness Time Seen by Provider: 08/14/22 16:57 Historian: patient, family Exam Limitations: no limitations Physician History: This is an overweight 51-year-old diabetic gentleman who is a patient of Dr. Obregon and has had a cholecystectomy in the past and has a known hiatal hernia who presents to the emergency department with approximately 1 week history of mid chest substernal central nonradiating chest pain that he describes as a pressure. It had been intermittent but today it became more constant. He then became concerned. He has not had a cough. He has not had a fever. He has no abdominal pain. He said no nausea vomiting or diarrhea symptoms. Timing/Duration: week(s) (1), worse Activities at Onset: none (Today) Quality: pressure Location: substernal, central Chest Pain Radiation: no radiation Severity of Pain-Max: mild Severity of Pain-Current: mild Modifying Factors: Improves With: nothing Associated Symptoms: denies symptoms Prior Chest Pain/Cardiac Workup: no prior chest pain Nitro Today/Relief: no nitro taken today Aspirin Treatment Today: no aspirin today Allergies/Adverse Reactions: No Known Drug Allergies Allergy (Verified 08/14/22 16:54) Home Medications: Metformin HCl 500 mg [Glucophage 500 MG] 1 tab PO BID 08/14/22 [History] Hx Tetanus, Diphtheria Vaccination/Date Given: No Hx Influenza Vaccination/Date Given: No Hx Pneumococcal Vaccination/Date Given: No Travel Risk - International Travel Have you traveled outside of the country in past 3 weeks: No - Coronavirus Screening Are you exhibiting any of the following symptoms?: No Close contact with a COVID-19 positive Pt in past 14-21 Days: No - Vaccine Status Have you recieved a Covid-19 vaccination: Yes 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[employer] - Vaccination Dates Date of 2cond Vaccination (if applicable): 12/2020 - Review of Systems Constitutional: No Symptoms Eyes: No Symptoms Ears, Nose, & Throat: No Symptoms Respiratory: No Symptoms Cardiac: Chest Pain (Described as a nonradiating, substernal, central chest pressure) Abdominal/Gastrointestinal: No Symptoms Genitourinary Symptoms: No Symptoms Musculoskeletal: No Symptoms Skin: No Symptoms Neurological: No Symptoms Psychological: No Symptoms Endocrine: No Symptoms Hematologic/Lymphatic: No Symptoms Immunological/Allergic: No Symptoms All Other Systems: Reviewed and Negative - Past Medical History Pertinent Past Medical History: Yes Neurological History: Migraines ENT History: No Pertinent History Cardiac History: No Pertinent History Respiratory History: Sleep Apnea Endocrine Medical History: Other Musculoskeletal History: No Pertinent History GI Medical History: No Pertinent History History: No Pertinent History Psycho-Social History: No Pertinent History Male Reproductive Disorders: No Pertinent History Other Medical History: GALL BLADDER SURGERY, - Past Surgical History Past Surgical History: Yes Neuro Surgical History: No Pertinent History Cardiac: No Pertinent History Respiratory: No Pertinent History Gastrointestinal: Cholecystectomy Genitourinary: No Pertinent History Musculoskeletal: No Pertinent History Male Surgical History: Vasectomy Other Surgical History: wisdom teeth removed, no problems with anesthesia - Social History Smoking Status: Never smoker Exposure to second hand smoke: No Drug Use: none Patient Lives Alone: No - Nursing Vital Signs Nursing Vital Signs: Initial Vital Signs Temperature 96.8 F 08/14/22 16:56 Pulse Rate 80 08/14/22 16:56 Respiratory Rate 19 08/14/22 16:56 Blood Pressure 185/102 08/14/22 16:56 O2 Sat by Pulse Oximetry 97 08/14/22 16:56 Pain Scale Pain Intensity 5 - Physical Exam General Appearance: no apparent distress, alert, anxiety, obese Eye Exam: PERRL/EOMI, eyes nml inspection Ears, Nose, Throat Exam: normal ENT inspection, moist mucous membranes Neck Exam: normal inspection, non-tender, supple, full range of motion Respiratory Exam: normal breath sounds, chest tenderness, lungs clear, airway intact, No respiratory distress Cardiovascular Exam: regular rate/rhythm, normal heart sounds, normal peripheral pulses Gastrointestinal/Abdomen Exam: soft, normal bowel sounds, No tenderness Rectal Exam: not done Back Exam: normal inspection, normal range of motion, No CVA tenderness, No vertebral tenderness Extremity Exam: normal inspection, normal range of motion, pelvis stable Neurologic Exam: alert, oriented x 3, 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, 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, normal mood/affect, nml cerebellar function, nml station & gait, sensation nml Skin Exam: normal color, warm, dry Lymphatic Exam: adenopathy SpO2 Interpretation: normal O2 Delivery: Room Air - Course Nursing assessment & vital signs reviewed: Yes Ordered Tests: Active Orders 24 hr Category Date Time Status Resistance Welder STAT Care 08/14/22 16:58 Active EKG-ER Only STAT Care 08/14/22 16:57 Active IV Insertion STAT Care 08/14/22 16:57 Active Pulse Oximetry (ED) STAT Care 08/14/22 16:57 Active CHEST 1 VIEW (PORTABLE) Stat Exams 08/14/22 16:58 Completed CBC W DIFF Stat Lab 08/14/22 17:13 Completed CMP Stat Lab 08/14/22 17:13 Completed D-DIMER QUANTITATIVE Stat Lab 08/14/22 17:51 Completed NT PRO BNP Stat Lab 08/14/22 17:13 Completed PROTIME WITH INR Stat Lab 08/14/22 17:51 Completed TROPONIN Q4H Lab 08/14/22 17:13 Completed TROPONIN Q4H Lab 08/14/22 21:00 Ordered TROPONIN Q4H Lab 08/15/22 01:00 Ordered Medication Summary Discontinued Medications Generic Name Dose Route Start Last Admin Trade Name Freq PRN Reason Stop Dose Admin Aspirin 324 mg 08/14/22 16:57 08/14/22 17:04 Aspirin 81 Mg Tab.Chew PO 08/14/22 16:58 324 mg STAT ONE Administration Aspirin Confirm 08/14/22 17:04 Aspirin 81 Mg Tab.Chew Administered 08/14/22 17:05 Dose 324 mg .ROUTE .PNMsoft ONE Lab/Rad Data: Laboratory Result Diagrams 08/14/22 17:13 08/14/22 17:13 Laboratory Results 08/14/22 08/14/22 08/14/22 Range/Units 17:51 17:13 17:13 WBC (4.0-10.5) x10^3/uL RBC (4.1-5.6) x10^6/uL Hgb (12.5-18.0) g/dL Hct (42-50) % MCV (78-100) fL MCH (26-32) pg MCHC (32-36) g/dL RDW (11.5-14.0) % Plt Count (150-450) x10^3/uL MPV (7.5-11.0) fL Gran % (36.0-66.0) % Immature Gran % (Auto) (0.00-0.4) % Nucleat RBC Rel Count (0.00-0.1) % Eos # (Auto) (0-0.5) x10^3/uL Immature Gran # (Auto) (0.00-0.03) x10^3u/L Absolute Lymphs (auto) (1.0-4.6) x10^3/uL Absolute Monos (auto) (0.0-1.3) x10^3/uL Absolute Nucleated RBC (0.00-0.01) x10^3u/L Lymphocytes % (24.0-44.0) % Monocytes % (0.0-12.0) % Eosinophils % (0.00-5.0) % Basophils % (0.0-0.4) % Absolute Granulocytes (1.4-6.9) x10^3/uL Basophils # (0-0.4) x10^3/uL PT 10.5 (9.4-12.5) SECONDS INR 0.99 (0.8-3.0) D-Dimer 0.22 (0.0-0.50) mg/L Sodium 138 (137-145) mmol/L Potassium 3.9 (3.5-5.1) mmol/L Chloride 102 (98-107) mmol/L Carbon Dioxide 30 (22-30) mmol/L Anion Gap 10.3 (5-15) MEQ/L BUN 17 (9-20) mg/dL Creatinine 0.79 (0.66-1.25) mg/dL Estimated GFR > 60.0 ML/MIN Glucose 103 (74-106) mg/dL Calcium 8.7 (8.4-10.2) mg/dL Total Bilirubin 0.60 (0.2-1.3) mg/dL AST 22 (17-59) U/L ALT 28 (0-50) U/L Alkaline Phosphatase 84 (38-126) U/L Troponin I < 0.012 (0.000-0.034) ng/mL NT-Pro-B Natriuret Pep 54.6 (0-900) pg/mL Serum Total Protein 7.7 (6.3-8.2) g/dL Albumin 4.5 (3.5-5.0) g/dL 08/14/22 Range/Units 17:13 WBC 10.0 (4.0-10.5) x10^3/uL RBC 5.01 (4.1-5.6) x10^6/uL Hgb 14.3 (12.5-18.0) g/dL Hct 43.4 (42-50) % MCV 86.6 (78-100) fL MCH 28.5 (26-32) pg MCHC 32.9 (32-36) g/dL RDW 13.2 (11.5-14.0) % Plt Count 280 (150-450) x10^3/uL MPV 10.7 (7.5-11.0) fL Gran % 60.7 (36.0-66.0) % Immature Gran % (Auto) 0.3 (0.00-0.4) % Nucleat RBC Rel Count 0.0 (0.00-0.1) % Eos # (Auto) 0.12 (0-0.5) x10^3/uL Immature Gran # (Auto) 0.03 (0.00-0.03) x10^3u/L Absolute Lymphs (auto) 2.93 (1.0-4.6) x10^3/uL Absolute Monos (auto) 0.79 (0.0-1.3) x10^3/uL Absolute Nucleated RBC 0.00 (0.00-0.01) x10^3u/L Lymphocytes % 29.2 (24.0-44.0) % Monocytes % 7.9 (0.0-12.0) % Eosinophils % 1.2 (0.00-5.0) % Basophils % 0.7 (0.0-0.4) % Absolute Granulocytes 6.10 (1.4-6.9) x10^3/uL Basophils # 0.07 (0-0.4) x10^3/uL PT (9.4-12.5) SECONDS INR (0.8-3.0) D-Dimer (0.0-0.50) mg/L Sodium (137-145) mmol/L Potassium (3.5-5.1) mmol/L Chloride (98-107) mmol/L Carbon Dioxide (22-30) mmol/L Anion Gap (5-15) MEQ/L BUN (9-20) mg/dL Creatinine (0.66-1.25) mg/dL Estimated GFR ML/MIN Glucose (74-106) mg/dL Calcium (8.4-10.2) mg/dL Total Bilirubin (0.2-1.3) mg/dL AST (17-59) U/L ALT (0-50) U/L Alkaline Phosphatase (38-126) U/L Troponin I (0.000-0.034) ng/mL NT-Pro-B Natriuret Pep (0-900) pg/mL Serum Total Protein (6.3-8.2) g/dL Albumin (3.5-5.0) g/dL - Progress Progress: improved, re-examined Air Movement: good Progress Note: 08/14/22 17:56 Chest x-ray shows minimal left base atelectasis. - Departure Departure Disposition: Home Clinical Impression: Non-cardiac chest pain Condition: Stable Critical Care Time: No Referrals: IESHA OBREGON MD [Primary Care Provider] - Follow up/PCP as directed Additional Instructions: Take all your medication as prescribed. Follow-up with your primary care physician for further evaluation management.
[2022-08-14] MEDS ORDERED: BABY ASPIRIN 81 MG CHEW ONE (17:04)
[2022-08-14 17:23] LABS: Basophil (Absolute #) 0.07 x10^3/uL (0-0.4); Eosinophil % 1.2 % (0.00-5.0); Eosinophil (Absolute #) 0.12 x10^3/uL (0-0.5); Hematocrit 43.4 % (42-50); Hemoglobin 14.3 g/dL (12.5-18.0); Lymphocyte (Absolute #) 2.93 x10^3/uL (1.0-4.6); Lymphocytes % 29.2 % (24.0-44.0); Mean Cell Volume 86.6 fL (78-100); Mean Corpuscular Hemoglobin 28.5 pg (26-32); Mean Corpuscular Hgb Concent. 32.9 g/dL (32-36); Mean Platelet Volume 10.7 fL (7.5-11.0); Monocyte (Absolute #) 0.79 x10^3/uL (0.0-1.3); Monocytes % 7.9 % (0.0-12.0); Neutrophil % 60.7 % (36.0-66.0); Platelet Count 280 x10^3/uL (150-450); Red Blood Count 5.01 x10^6/uL (4.1-5.6); Red Cell Distribution Width 13.2 % (11.5-14.0)
--- NOTE | 2022-08-14 17:27 | XRAY ---
Indication: Chest tightness. Comparison: None Portable chest demonstrates minimal left base subsegmental atelectasis/scarring. Remaining heart and lungs unremarkable. Bony thorax intact.
[2022-08-14 17:48] LABS: ALBUMIN 4.5 g/dL (3.5-5.0); ALKALINE PHOSPHATASE 84 U/L (38-126); ANION GAP 10.3 MEQ/L (5-15); BLOOD UREA NITROGEN 17 mg/dL (9-20); CHLORIDE 102 mmol/L (98-107); Calcium 8.7 mg/dL (8.4-10.2); Carbon Dioxide 30 mmol/L (22-30); Creatinine 1 0.79 mg/dL (0.66-1.25); EST GLOMERULAR FILTRATION RATE > 60.0 ML/MIN; Glucose 103 mg/dL (74-106); NT PRO BNP 54.6 pg/mL (0-900); Potassium 3.9 mmol/L (3.5-5.1); SGOT/AST 22 U/L (17-59); SGPT/ALT 28 U/L (0-50); SODIUM 138 mmol/L (137-145); Total Protein 7.7 g/dL (6.3-8.2)
[2022-08-14 17:55] VITALS: O2SAT 98
[2022-08-14 18:07] LABS: D-DIMER QUANTITATIVE 0.22 mg/L (0.0-0.50); INR 0.99 (0.8-3.0); PROTIME 10.5 SECONDS (9.4-12.5)
[2022-08-14 18:11] VITALS: BP 141/96; PULSE 68
== END 2022-08-14 18:52 | disposition home or self-care (01) ==
LOC: ED 16:52
DX: R07.89 Other chest pain (principal); E11.9 Type 2 diabetes mellitus without complications; Z79.84 Long term (current) use of oral hypoglycemic drugs
CPT/HCPCS: 36000; 36415; 71045; 80053; 83880; 84484; 85025; 85379; 85610; 93005; 93041; 94760; 99284; A9270-GY

== ENCOUNTER 2023-07-07 20:35 | Observation (INO) | payer OTHER ==
--- NOTE | 2023-07-07 20:53 | ERPHSYRPT ---
- History of Present Illness Time Seen by Provider: 07/07/23 20:55 Historian: patient Exam Limitations: no limitations Physician History: Patient is a 52-year-old male with a history of hyperlipidemia hypertension and diabetes presents to our ED with complaints of exertional chest pain and irregular bowel movement associated with abdominal pain. Symptoms started today. Patient states that he has been experiencing infrequent bowel movements. Patient treated himself with an enema on Saturday as well as today. Patient had a small liquid like bowel movement. Patient states today he developed some midsternal chest pressure during ambulation that improved with rest. Patient went for second walk today at approximately 1915. Patient experiences same symptoms however this time he also experienced some dizziness and shortness of breath. Symptoms are mild to moderate in intensity. Exertion reproduces pain. Pain improved with rest. Patient voices no other complaints or concerns at this time. Portions of this note were created with voice recognition technology. There may be grammatical, spelling, punctuation or sound alike errors Timing/Duration: today Activities at Onset: activity Quality: aching Location: substernal Chest Pain Radiation: no radiation Severity of Pain-Max: moderate Severity of Pain-Current: mild Modifying Factors: Improves With: nothing Associated Symptoms: dizziness, other (Shortness of breath) Prior Chest Pain/Cardiac Workup: no prior chest pain Nitro Today/Relief: no nitro taken today Aspirin Treatment Today: no aspirin today Allergies/Adverse Reactions: No Known Drug Allergies Allergy (Verified 07/07/23 20:38) Home Medications: Metformin HCl 500 mg [Glucophage 500 MG] 1 tab PO BID 08/14/22 [History] Atorvastatin Calcium 20 mg PO HS 07/07/23 [History] Ergocalciferol (Vitamin D2) [Vitamin D2] 1 cap PO WEEKLY 07/07/23 [History] Losartan Potassium 25 mg PO DAILY 07/07/23 [History] Pantoprazole 20 mg [Protonix 20MG Tablet] 20 mg PO DAILY 07/07/23 [ History] Hx Tetanus, Diphtheria Vaccination/Date Given: No Hx Influenza Vaccination/Date Given: No Hx Pneumococcal Vaccination/Date Given: No Travel Risk - Vaccine Status Have you recieved a Covid-19 vaccination: Yes [employer]: [employer] - Vaccination Dates Date of 2cond Vaccination (if applicable): 12/2020 - Review of Systems Constitutional: No Symptoms, No Fever, No Chills Eyes: No Symptoms Ears, Nose, & Throat: No Symptoms Respiratory: No Symptoms, No Cough, No Dyspnea Cardiac: No Symptoms, No Chest Pain, No Edema, No Syncope Abdominal/Gastrointestinal: No Symptoms, No Abdominal Pain, No Nausea, No Vomiting, No Diarrhea Genitourinary Symptoms: No Symptoms, No Dysuria Musculoskeletal: No Symptoms, No Back Pain, No Neck Pain Skin: No Symptoms, No Rash Neurological: No Symptoms, No Dizziness, No Focal Weakness, No Sensory Changes Psychological: No Symptoms Endocrine: No Symptoms Hematologic/Lymphatic: No Symptoms Immunological/Allergic: No Symptoms All Other Systems: Reviewed and Negative - Past Medical History Pertinent Past Medical History: Yes Neurological History: No Pertinent History ENT History: No Pertinent History Cardiac History: Hypertension Respiratory History: Sleep Apnea Endocrine Medical History: Diabetes Type II Musculoskeletal History: No Pertinent History GI Medical History: No Pertinent History History: No Pertinent History Psycho-Social History: No Pertinent History Male Reproductive Disorders: No Pertinent History Other Medical History: GALL BLADDER SURGERY, - Past Surgical History Past Surgical History: Yes Neuro Surgical History: No Pertinent History Cardiac: No Pertinent History Respiratory: No Pertinent History Gastrointestinal: Cholecystectomy Genitourinary: No Pertinent History Musculoskeletal: No Pertinent History Male Surgical History: Vasectomy Other Surgical History: wisdom teeth removed, no problems with anesthesia - Social History Smoking Status: Never smoker Exposure to second hand smoke: No Drug Use: none Patient Lives Alone: No - Nursing Vital Signs Nursing Vital Signs: Initial Vital Signs Temperature 96.3 F 07/07/23 20:42 Pulse Rate 98 H 07/07/23 20:42 Respiratory Rate 16 07/07/23 20:42 Blood Pressure 185/139 07/07/23 20:42 O2 Sat by Pulse Oximetry 98 07/07/23 20:42 Pain Scale Pain Intensity 4 - Physical Exam General Appearance: no apparent distress, alert Eye Exam: PERRL/EOMI, eyes nml inspection Ears, Nose, Throat Exam: moist mucous membranes Neck Exam: normal inspection, non-tender, supple, full range of motion Respiratory Exam: normal breath sounds, lungs clear, airway intact, No respiratory distress Cardiovascular Exam: regular rate/rhythm, normal heart sounds, normal peripheral pulses Gastrointestinal/Abdomen Exam: soft, No tenderness, No mass Back Exam: normal inspection, No CVA tenderness, No vertebral tenderness Extremity Exam: normal inspection, normal range of motion Neurologic Exam: alert, oriented x 3, cooperative, clay molder II-XII nml as tested, normal mood/affect, sensation nml, No motor deficits Skin Exam: normal color, warm, dry, No jaundice SpO2 Interpretation: normal SpO2: 98 O2 Delivery: Room Air - Course Nursing assessment & vital signs reviewed: Yes EKG Interpreted by Me: RATE (73), Sinus Rhythm, Left [place] Deviation, NORMAL INTERVALS - Radiology Exams Chest X-ray Interpretation: Interpreted by me (Negative CXR) - CT Exams Abdomen/Pelvis CT Interpretation: Tele-radiologist Report (4 mm nonobstructing right renal lower pole calculus, probable left renal cortical cyst, hepatomegaly, mildly enlarged prostate with concretions) Ordered Tests: Active Orders 24 hr Category Date Time Status Wood Handler STAT Care 07/07/23 20:49 Active EKG-ER Only STAT Care 07/07/23 20:48 Active IV Insertion STAT Care 07/07/23 20:48 Active Pulse Oximetry (ED) STAT Care 07/07/23 20:48 Active ABDOMEN AND PELVIS W/0 CONTRAS [CT] Stat Exams 07/07/23 20:53 Completed CHEST 1 VIEW (PORTABLE) Stat Exams 07/07/23 21:37 Taken CBC W DIFF Stat Lab 07/07/23 20:57 Completed CMP Stat Lab 07/07/23 20:57 Completed D-DIMER QUANTITATIVE Stat Lab 07/07/23 20:57 Completed NT PRO BNPII Stat Lab 07/07/23 20:57 Completed TROPONIN Q4H Lab 07/07/23 20:57 Completed TROPONIN Q4H Lab 07/08/23 01:00 Ordered TROPONIN Q4H Lab 07/08/23 05:00 Ordered Transfer Order Routine Transfer 07/07/23 Ordered Medication Summary Discontinued Medications Generic Name Dose Route Start Last Admin Trade Name Freq PRN Reason Stop Dose Admin Aspirin 324 mg 07/07/23 22:03 07/07/23 22:06 Aspirin 81 Mg Tab.Chew PO 07/07/23 22:04 324 mg STAT ONE Administration Aspirin Confirm 07/07/23 22:05 Aspirin 81 Mg Tab.Chew Administered 07/07/23 22:06 Dose 324 mg .ROUTE .STK-MED ONE Nitroglycerin 1 gm 07/07/23 22:03 07/07/23 22:06 Nitroglycerin 1 Gm Packet TOP 07/07/23 22:04 1 gm STAT ONE Administration Nitroglycerin Confirm 07/07/23 22:05 Nitroglycerin 1 Gm Packet Administered 07/07/23 22:06 Dose 1 gm .ROUTE .STK-MED ONE Ondansetron HCl 4 mg 07/07/23 21:01 07/07/23 21:07 Ondansetron Hcl 4 Mg/2 Ml Vial IV 07/07/23 21:02 4 mg STAT ONE Administration Ondansetron HCl Confirm 07/07/23 21:02 Ondansetron Hcl 4 Mg/2 Ml Vial Administered 07/07/23 21:03 Dose 4 mg .ROUTE .STK-MED ONE Lab/Rad Data: Laboratory Result Diagrams 07/07/23 20:57 07/07/23 20:57 Laboratory Results 07/07/23 07/07/23 07/07/23 Range/Units 20:57 20:57 20:57 WBC (4.0-10.5) x10^3/uL RBC (4.1-5.6) x10^6/uL Hgb (12.5-18.0) g/dL Hct (42-50) % MCV (78-100) fL MCH (26-32) pg MCHC (32-36) g/dL RDW (11.5-14.0) % Plt Count (150-450) x10^3/uL MPV (7.5-11.0) fL Gran % (36.0-66.0) % Immature Gran % (Auto) (0.00-0.4) % Nucleat RBC Rel Count (0.00-0.1) % Eos # (Auto) (0-0.5) x10^3/uL Immature Gran # (Auto) (0.00-0.03) x10^3u/L Absolute Lymphs (auto) (1.0-4.6) x10^3/uL Absolute Monos (auto) (0.0-1.3) x10^3/uL Absolute Nucleated RBC (0.00-0.01) x10^3u/L Lymphocytes % (24.0-44.0) % Monocytes % (0.0-12.0) % Eosinophils % (0.00-5.0) % Basophils % (0.0-0.4) % Absolute Granulocytes (1.4-6.9) x10^3/uL Basophils # (0-0.4) x10^3/uL D-Dimer < 0.19 (0.0-0.50) mg/L Sodium 138 (137-145) mmol/L Potassium 4.6 (3.5-5.1) mmol/L Chloride 104 (98-107) mmol/L Carbon Dioxide 27 (22-30) mmol/L Anion Gap 11.4 (5-15) MEQ/L BUN 23 H (9-20) mg/dL Creatinine 0.64 L (0.66-1.25) mg/dL Estimated GFR > 60.0 ML/MIN Glucose 120 H (74-106) mg/dL Calcium 8.7 (8.4-10.2) mg/dL Total Bilirubin 0.50 (0.2-1.3) mg/dL AST 27 (17-59) U/L ALT 24 (0-50) U/L Alkaline Phosphatase 73 (38-126) U/L Troponin I < 0.012 (0.000-0.034) ng/mL NT-Pro-B Natriuret Pep < 20.0 (<300) pg/mL Serum Total Protein 7.1 (6.3-8.2) g/dL Albumin 4.2 (3.5-5.0) g/dL 07/07/23 Range/Units 20:57 WBC 11.1 H (4.0-10.5) x10^3/uL RBC 4.88 (4.1-5.6) x10^6/uL Hgb 14.1 (12.5-18.0) g/dL Hct 43.1 (42-50) % MCV 88.3 (78-100) fL MCH 28.9 (26-32) pg MCHC 32.7 (32-36) g/dL RDW 13.2 (11.5-14.0) % Plt Count 280 (150-450) x10^3/uL MPV 10.3 (7.5-11.0) fL Gran % 55.9 (36.0-66.0) % Immature Gran % (Auto) 0.3 (0.00-0.4) % Nucleat RBC Rel Count 0.0 (0.00-0.1) % Eos # (Auto) 0.16 (0-0.5) x10^3/uL Immature Gran # (Auto) 0.03 (0.00-0.03) x10^3u/L Absolute Lymphs (auto) 3.62 (1.0-4.6) x10^3/uL Absolute Monos (auto) 1.02 (0.0-1.3) x10^3/uL Absolute Nucleated RBC 0.00 (0.00-0.01) x10^3u/L Lymphocytes % 32.6 (24.0-44.0) % Monocytes % 9.2 (0.0-12.0) % Eosinophils % 1.4 (0.00-5.0) % Basophils % 0.6 (0.0-0.4) % Absolute Granulocytes 6.22 (1.4-6.9) x10^3/uL Basophils # 0.07 (0-0.4) x10^3/uL D-Dimer (0.0-0.50) mg/L Sodium (137-145) mmol/L Potassium (3.5-5.1) mmol/L Chloride (98-107) mmol/L Carbon Dioxide (22-30) mmol/L Anion Gap (5-15) MEQ/L BUN (9-20) mg/dL Creatinine (0.66-1.25) mg/dL Estimated GFR ML/MIN Glucose (74-106) mg/dL Calcium (8.4-10.2) mg/dL Total Bilirubin (0.2-1.3) mg/dL AST (17-59) U/L ALT (0-50) U/L Alkaline Phosphatase (38-126) U/L Troponin I (0.000-0.034) ng/mL NT-Pro-B Natriuret Pep (<300) pg/mL Serum Total Protein (6.3-8.2) g/dL Albumin (3.5-5.0) g/dL - Progress Progress: improved Air Movement: good Progress Note: Heart score is 4 07/07/23 22:12 52-year-old male with a history of hypertension diabetes hyperlipidemia presents to our ED for evaluation of exertional chest pain shortness of breath dizziness. Patient additionally complains of some abdominal discomfort and constipation. Physical exam essentially nonremarkable. EKG reveals normal sinus rhythm. Chest x-ray is essentially within normal limits. CT abdomen pelvis reveals hepatomegaly, slightly enlarged prostate, renal cyst, nephrolithiasis no acute findings. CBC CMP essentially unremarkable. D-dimer negative. BNP troponin negative. Patient received nitroglycerin and aspirin and Zofran for nausea. Case discussed with Dr. Yost at approximately 10:[address] Jacobo accepts admission to observation. Plan of care discussed with patient and his . They agree to admission at [facility] for further evaluation and treatment. Portions of this note were created with voice recognition technology. There may be grammatical, spelling, punctuation or sound alike errors Complexity of problems addressed is moderate acute complicated No critical care time Complex of data reviewed and analyzed is extensive. Test ordered test reviewed. Results were analyzed and clinically correlated with history and physical examination. Plan of care discussed with hospitalist who accepts admission to observation. Patient was at accepted Dr. Yost at 10:30 PM. Risk of complication and or risk of morbidity/mortality of patient management is high. Patient requires hospitalization for further evaluation and treatment. Vital stable. Time spent admit patient is approximately 20 minutes. Plan of care established for shared decision making. Portions of this note were created with voice recognition technology. There may be grammatical, spelling, punctuation or sound alike errors 07/07/23 22:45 Blood Culture(s) Obtained: No Antibiotics given: No Discussed with Dr.: Hart (Case discussed with Dr. Yost at 10:30 PM) Counseled pt/family regarding: lab results, diagnosis - Departure Departure Disposition: Observation Clinical Impression: Hepatomegaly, Cyst of left kidney, Right nephrolithiasis, Enlarged prostate, Dizziness Condition: Stable Critical Care Time: No
[2023-07-07 21:00] LABS: Absolute Neutrophil Ct (ANC) 6.22 x10^3/uL (1.4-6.9); BASOPHIL % 0.6 % (0.0-0.4); Basophil (Absolute #) 0.07 x10^3/uL (0-0.4); Eosinophil % 1.4 % (0.00-5.0); Eosinophil (Absolute #) 0.16 x10^3/uL (0-0.5); Hematocrit 43.1 % (42-50); Hemoglobin 14.1 g/dL (12.5-18.0); IMMATURE GRAN # 0.03 x10^3u/L (0.00-0.03); IMMATURE GRAN % 0.3 % (0.00-0.4); Lymphocyte (Absolute #) 3.62 x10^3/uL (1.0-4.6); Lymphocytes % 32.6 % (24.0-44.0); Mean Cell Volume 88.3 fL (78-100); Mean Corpuscular Hemoglobin 28.9 pg (26-32); Mean Corpuscular Hgb Concent. 32.7 g/dL (32-36); Mean Platelet Volume 10.3 fL (7.5-11.0); Monocyte (Absolute #) 1.02 x10^3/uL (0.0-1.3); Monocytes % 9.2 % (0.0-12.0); Neutrophil % 55.9 % (36.0-66.0); Platelet Count 280 x10^3/uL (150-450); Red Blood Count 4.88 x10^6/uL (4.1-5.6); Red Cell Distribution Width 13.2 % (11.5-14.0); White Blood Count 11.1 x10^3/uL (4.0-10.5)
[2023-07-07] MEDS ORDERED: Zofran 4 MG/2 ML VIAL IV ONE (21:01)
[2023-07-07] MEDS ORDERED: Zofran 4 MG/2 ML VIAL ONE (21:02)
[2023-07-07 21:13] LABS: ALBUMIN 4.2 g/dL (3.5-5.0); ALKALINE PHOSPHATASE 73 U/L (38-126); ANION GAP 11.4 MEQ/L (5-15); BLOOD UREA NITROGEN 23 mg/dL (9-20); CHLORIDE 104 mmol/L (98-107); Calcium 8.7 mg/dL (8.4-10.2); Carbon Dioxide 27 mmol/L (22-30); Creatinine 1 0.64 mg/dL (0.66-1.25); EST GLOMERULAR FILTRATION RATE > 60.0 ML/MIN; Glucose 120 mg/dL (74-106); Potassium 4.6 mmol/L (3.5-5.1); SGOT/AST 27 U/L (17-59); SGPT/ALT 24 U/L (0-50); SODIUM 138 mmol/L (137-145); Total Protein 7.1 g/dL (6.3-8.2)
[2023-07-07 21:24] LABS: NT PRO BNPII < 20.0 pg/mL (<300); TROPONIN < 0.012 ng/mL (0.000-0.034)
--- NOTE | 2023-07-07 21:53 | XRAY ---
CLINICAL HISTORY:pain COMPARISON:None TECHNIQUE:A CT scan of the abdomen and pelvis was performed without IV contrast. FINDINGS: The liver is enlarged measuring 20.1 cm craniocaudally. No diffuse or focal parenchyma lesions. It has normal shape and regular margins. No hepatic mass is identified. The portal vein, intrahepatic biliary radicals, and the bile ducts are normal. The gall bladder is surgically absent. The common bile duct appears normal. Pancreas appears normal. No peripancreatic fat stranding, pancreatic pseudocyst, or peripancreatic fluid collection. Spleen normal in size, no mass seen. A 14 mm splennenculus is seen at mid pole. Both adrenal glands are unremarkable. Both kidneys are normal in size, shape, and orientation. The right kidney shows a 4 mm non-obstructing calculus at the lower pole, no cyst or mass seen. The left kidney shows a 29 mm exophytic unilocular cortical cyst, no stone, mass, or hydronephrosis. Bilateral perinephric fat stranding is noted which might be physiological. Both ureters and urinary bladder appear normal. Stomach and small bowel loops are unremarkable. The caecum and ileocecal junction appear normal. No abnormal large bowel wall thickening or bowel obstruction. The sigmoid and rectum appear normal. The prostate is mildly enlarged measuring 53 X 50 X 40 mm with concretions. No evidence of significant enlargement of the mesenteric or retroperitoneal lymph nodes. The visualized skeleton shows degenerative changes with vacuum phenomenon at the T12-L1 level. Reduced heights of L1 and L2 vertebral bodies is also noted. Few bony islands seen. Visualized lung bases are unremarkable. IMPRESSION: 1. A 4 mm non-obstructing right renal lower pole calculus. 2. Probable left renal cortical cyst. 3. Hepatomegaly. 4. Mildly enlarged prostate gland measuring 53 X 50 X 40 mm with concretions. Electronically Signed by: Alvaro Morrison MD. (07/07/2023 20:52:18 [employer])
[2023-07-07] MEDS ORDERED: NITRO-BID 2% UD PACKETS TOP ONE (22:03)
[2023-07-07] MEDS ORDERED: BABY ASPIRIN 81 MG CHEW PO ONE (22:03)
[2023-07-07] MEDS ORDERED: NITRO-BID 2% UD PACKETS ONE (22:05)
[2023-07-07] MEDS ORDERED: BABY ASPIRIN 81 MG CHEW ONE (22:05)
--- NOTE | 2023-07-07 23:59 | PCM.HP ---
History of Present Illness - Chief Complaint Chief Complaint: acs, exertional chest pain/dizziness Date: 07/07/23 History of Present Illness: This is a 52-year-old male admitted for out chest pain. He has past medical history of hypertension, diabetes, hyperlipidemia, Covid in 01/29 with persistent low energy for which he has seen his PCP for and labs workup unrevealing., GRISELDA on CAP, mild COPD on PFTs he is scheduled for echo and stress test. He presented to the ED this evening for evaluation of chest pain with exertion x1 day. He states he was walking in driveway to stimulate his bowel this evening and with walking. In the driveway he began having belching ep isodes, vertigo with looking to the left and chest pressure which improved with rest. He also reported abdominal pain and constipation. On arrival his he was afebrile, heart rate 98, blood pressure 185/139. Labs significant for WBC 11, hemoglobin 14, platelets 280, creatinine 0.64. Troponin negative, NT proBNP negative, D-dimer negative.. CT abdomen pelvis showed no acute pathology mildly enlarged prostate and a 4 mm nonobstructing right renal lower pole calculus and hepatomegaly. Chest x-ray with no acute pathology. - Review of Systems Eyes: No Symptoms Ears, Nose, & Throat: No Symptoms Respiratory: No Symptoms Cardiac: Chest Pain Abdominal/Gastrointestinal: No Symptoms Genitourinary Symptoms: No Symptoms Musculoskeletal: No Symptoms Skin: No Symptoms Neurological: No Symptoms Psychological: No Symptoms Endocrine: No Symptoms Hematologic/Lymphatic: No Symptoms Immunological/Allergic: No Symptoms Medications & Allergies Home Medications: Home Medication List Metformin HCl 500 mg [Glucophage 500 MG] 1 tab PO BID 08/14/22 [History Confirmed 07/07/23] Atorvastatin Calcium 20 mg PO HS 07/07/23 [History Confirmed 07/07/23] Ergocalciferol (Vitamin D2) [Vitamin D2] 1 cap PO WEEKLY 07/07/23 [History Confirmed 07/07/23] Losartan Potassium 25 mg PO DAILY 07/07/23 [History Confirmed 07/07/23] Pantoprazole 20 mg [Protonix 20MG Tablet] 20 mg PO DAILY 07/07/23 [History Confirmed 07/07/23] Allergies/Adverse Reactions: Allergies Allergy/AdvReac Type Severity Reaction Status Date / Time No Known Drug Allergies Allergy Verified 07/07/23 20:38 - Past Medical History Past Medical History: Yes Neurological History: No Pertinent History ENT History: No Pertinent History Cardiac History: Hypertension Respiratory History: Sleep Apnea Endocrine Medical History: Diabetes Type II Musculoskelatal History: No Pertinent History GI Medical History: No Pertinent History, Gallbladder Disease History: No Pertinent History Pyscho-Social History: No Pertinent History Male Reproductive Disorders: No Pertinent History Comment: GALL BLADDER SURGERY, - Past Surgical History Past Surgical History: Yes Neuro Surgical History: No Pertinent History Cardiac History: No Pertinent History Respiratory Surgery: No Pertinent History GI Surgical History: Cholecystectomy Genitourinary Surgical Hx: No Pertinent History Musculskeletal Surgical Hx: No Pertinent History Male Surgical History: Vasectomy Other Surgical History: wisdom teeth removed, no problems with anesthesia - Social History Smoking Status: Never smoker Exposure to second hand smoke: No Alcohol: Occasionally Drug Use: none - Physical Exam Vital Signs: Vital Signs - 24 hr Temp Pulse Pulse Resp BP BP Pulse Ox 07/07/23 23:21 97.6 F 70 16 136/74 96 07/07/23 22:50 98 07/07/23 22:30 73 11 L 134/70 97 07/07/23 22:00 72 14 158/103 96 07/07/23 21:39 84 19 137/80 93 L 07/07/23 20:53 78 16 147/93 98 07/07/23 20:48 98 07/07/23 20:42 96.3 F 98 H 74 16 185/139 98 General Appearance: no apparent distress Neurologic Exam: alert, oriented x 3 Eye Exam: PERRL/EOMI Ears, Nose, Throat Exam: normal ENT inspection Neck Exam: normal inspection Respiratory Exam: normal breath sounds Cardiovascular Exam: regular rate/rhythm Gastrointestinal/Abdomen Exam: soft Results - Labs Lab/Micro Results: Lab Results-Last 24 Hours 07/07/23 07/07/23 07/07/23 Range/Units 20:57 20:57 20:57 WBC 11.1 H (4.0-10.5) x10^3/uL RBC 4.88 (4.1-5.6) x10^6/uL Hgb 14.1 (12.5-18.0) g/dL Hct 43.1 (42-50) % MCV 88.3 (78-100) fL MCH 28.9 (26-32) pg MCHC 32.7 (32-36) g/dL RDW 13.2 (11.5-14.0) % Plt Count 280 (150-450) x10^3/uL MPV 10.3 (7.5-11.0) fL Gran % 55.9 (36.0-66.0) % Immature Gran % (Auto) 0.3 (0.00-0.4) % Nucleat RBC Rel Count 0.0 (0.00-0.1) % Eos # (Auto) 0.16 (0-0.5) x10^3/uL Immature Gran # (Auto) 0.03 (0.00-0.03) x10^3u/L Absolute Lymphs (auto) 3.62 (1.0-4.6) x10^3/uL Absolute Monos (auto) 1.02 (0.0-1.3) x10^3/uL Absolute Nucleated RBC 0.00 (0.00-0.01) x10^3u/L Lymphocytes % 32.6 (24.0-44.0) % Monocytes % 9.2 (0.0-12.0) % Eosinophils % 1.4 (0.00-5.0) % Basophils % 0.6 (0.0-0.4) % Absolute Granulocytes 6.22 (1.4-6.9) x10^3/uL Basophils # 0.07 (0-0.4) x10^3/uL D-Dimer < 0.19 (0.0-0.50) mg/L Sodium 138 (137-145) mmol/L Potassium 4.6 (3.5-5.1) mmol/L Chloride 104 (98-107) mmol/L Carbon Dioxide 27 (22-30) mmol/L Anion Gap 11.4 (5-15) MEQ/L BUN 23 H (9-20) mg/dL Creatinine 0.64 L (0.66-1.25) mg/dL Estimated GFR > 60.0 ML/MIN Glucose 120 H (74-106) mg/dL Calcium 8.7 (8.4-10.2) mg/dL Total Bilirubin 0.50 (0.2-1.3) mg/dL AST 27 (17-59) U/L ALT 24 (0-50) U/L Alkaline Phosphatase 73 (38-126) U/L Troponin I (0.000-0.034) ng/mL NT-Pro-B Natriuret Pep (<300) pg/mL Serum Total Protein 7.1 (6.3-8.2) g/dL Albumin 4.2 (3.5-5.0) g/dL 07/07/23 Range/Units 20:57 WBC (4.0-10.5) x10^3/uL RBC (4.1-5.6) x10^6/uL Hgb (12.5-18.0) g/dL Hct (42-50) % MCV (78-100) fL MCH (26-32) pg MCHC (32-36) g/dL RDW (11.5-14.0) % Plt Count (150-450) x10^3/uL MPV (7.5-11.0) fL Gran % (36.0-66.0) % Immature Gran % (Auto) (0.00-0.4) % Nucleat RBC Rel Count (0.00-0.1) % Eos # (Auto) (0-0.5) x10^3/uL Immature Gran # (Auto) (0.00-0.03) x10^3u/L Absolute Lymphs (auto) (1.0-4.6) x10^3/uL Absolute Monos (auto) (0.0-1.3) x10^3/uL Absolute Nucleated RBC (0.00-0.01) x10^3u/L Lymphocytes % (24.0-44.0) % Monocytes % (0.0-12.0) % Eosinophils % (0.00-5.0) % Basophils % (0.0-0.4) % Absolute Granulocytes (1.4-6.9) x10^3/uL Basophils # (0-0.4) x10^3/uL D-Dimer (0.0-0.50) mg/L Sodium (137-145) mmol/L Potassium (3.5-5.1) mmol/L Chloride (98-107) mmol/L Carbon Dioxide (22-30) mmol/L Anion Gap (5-15) MEQ/L BUN (9-20) mg/dL Creatinine (0.66-1.25) mg/dL Estimated GFR ML/MIN Glucose (74-106) mg/dL Calcium (8.4-10.2) mg/dL Total Bilirubin (0.2-1.3) mg/dL AST (17-59) U/L ALT (0-50) U/L Alkaline Phosphatase (38-126) U/L Troponin I < 0.012 (0.000-0.034) ng/mL NT-Pro-B Natriuret Pep < 20.0 (<300) pg/mL Serum Total Protein (6.3-8.2) g/dL Albumin (3.5-5.0) g/dL - Radiology Impressions Radiology Exams & Impressions: Radiology Procedures Category Date Time Status ABDOMEN AND PELVIS W/0 CONTRAS [CT] Stat Exams 07/07/23 20:53 Completed CHEST 1 VIEW (PORTABLE) Stat Exams 07/07/23 21:37 Taken - Other Procedures and Tests Respiratory Therapy 07/07/23 23:40 BiPap/CPAP ROUTINE Assessment/Plan (1) Non-cardiac chest pain Current Visit: No Status: Acute Assessment & Plan: ASSESSMENT #Chest pain, atypical #Vertigo #Constipation #History of diabetes #History of hypertension #History of hyperlipidemia PLAN -Trend troponins -ASA -Monitor on telemetry -Stress test -Echo -Carotid US -Bowel regimen -Check A1c and lipid panel -Continue home medicine Prophylaxis: Lovenox Entire encounter performed via telemedicine Code(s): R07.89 - OTHER CHEST PAIN Telemedicine Encounter - Telemedicine Encounter Telemedicine Encounter: The entirety of this encounter was performed via Telemedicine"
[2023-07-08] MEDS ORDERED: TYLENOL 325 MG PO PRN (00:01)
[2023-07-08] MEDS ORDERED: Docusate Sodium 100 MG PO PRN (00:01)
[2023-07-08] MEDS ORDERED: MILK OF MAGNESIA 30 ML PO PRN (00:07)
[2023-07-08] MEDS ORDERED: MAALOX ES 30 ML UNIT DOSE PO PRN (00:07)
[2023-07-08] MEDS ORDERED: Zofran 4 MG/2 ML VIAL IV PRN (00:08)
[2023-07-08 04:41] LABS: Absolute Neutrophil Ct (ANC) 8.18 x10^3/uL (1.4-6.9); BASOPHIL % 0.5 % (0.0-0.4); Basophil (Absolute #) 0.06 x10^3/uL (0-0.4); Eosinophil (Absolute #) 0.12 x10^3/uL (0-0.5); Hematocrit 40.2 % (42-50); IMMATURE GRAN # 0.04 x10^3u/L (0.00-0.03); IMMATURE GRAN % 0.3 % (0.00-0.4); Lymphocyte (Absolute #) 2.39 x10^3/uL (1.0-4.6); Lymphocytes % 20.4 % (24.0-44.0); Mean Cell Volume 88.7 fL (78-100); Mean Corpuscular Hemoglobin 28.7 pg (26-32); Mean Corpuscular Hgb Concent. 32.3 g/dL (32-36); Mean Platelet Volume 10.3 fL (7.5-11.0); Monocyte (Absolute #) 0.92 x10^3/uL (0.0-1.3); Monocytes % 7.9 % (0.0-12.0); Neutrophil % 69.9 % (36.0-66.0); Platelet Count 265 x10^3/uL (150-450); Red Blood Count 4.53 x10^6/uL (4.1-5.6); Red Cell Distribution Width 13.3 % (11.5-14.0); White Blood Count 11.7 x10^3/uL (4.0-10.5)
[2023-07-08 05:19] LABS: ALBUMIN 3.8 g/dL (3.5-5.0); ALKALINE PHOSPHATASE 78 U/L (38-126); ANION GAP 9.9 MEQ/L (5-15); BLOOD UREA NITROGEN 26 mg/dL (9-20); CHLORIDE 104 mmol/L (98-107); Calcium 8.5 mg/dL (8.4-10.2); Carbon Dioxide 28 mmol/L (22-30); Cholesterol 86 mg/dL (50-200); Creatinine 1 0.68 mg/dL (0.66-1.25); EST GLOMERULAR FILTRATION RATE > 60.0 ML/MIN; Glucose 114 mg/dL (74-106); HDL CHOLESTEROL 37 mg/dL (40-60); LDL, DIRECT 46 mg/dL (30-100); Potassium 4.3 mmol/L (3.5-5.1); Risk Ratio 2.3; SGOT/AST 19 U/L (17-59); SGPT/ALT 21 U/L (0-50); SODIUM 138 mmol/L (137-145); TRIGLYCERIDE 101 mg/dL (30-150); Total Protein 6.5 g/dL (6.3-8.2)
--- NOTE | 2023-07-08 05:20 | PCM.NOTE ---
Date and Time: 07/08/23514 Subjective Assessment: HPI: 52-year-old male admitted for out chest pain. He has past medical history of hypertension, diabetes, hyperlipidemia, Covid in 01/29 with persistent low energy for which he has seen his PCP for and labs workup unrevealing, GRISELDA on CAP, mild COPD on PFTs he is scheduled for echo and stress test. He presented to the ED 07/07 for evaluation of chest pain with exertion x1 day. He states he was walking in driveway to stimulate his bowel this evening and with walking. In the driveway he began having belching episodes, vertigo with looking to the left and chest pressure which improved with rest. He also reported abdominal pain and constipation. On arrival his he was afebrile, heart rate 98, blood pressure 185/139. Labs significant for WBC 11, hemoglobin 14, platelets 280, creatinine 0.64. Troponin negative, NT proBNP negative, D-dimer negative. EKG Interpreted RATE (73), Sinus Rhythm, Left [place] Deviation, NORMAL INTERVALS CT abdomen pelvis showed no acute pathology mildly enlarged prostate and a 4 mm nonobstructing right renal lower pole calculus and hepatomegaly. Chest x-ray with no acute pathology. OBJECTIVE DATA Vital Signs: Vital Signs - 24 hr Temp Pulse Pulse Resp BP BP Pulse Ox 07/07/23 23:21 97.6 F 70 16 136/74 96 07/07/23 22:50 98 07/07/23 22:30 73 11 L 134/70 97 07/07/23 22:00 72 14 158/103 96 07/07/23 21:39 84 19 137/80 93 L 07/07/23 20:53 78 16 147/93 98 07/07/23 20:48 98 07/07/23 20:42 96.3 F 98 H 74 16 185/139 98 Pain Assessment - Last Documented Pain Intensity 0 Intake and Output: Intake & Output 07/05/23 07/06/23 07/07/23 07/08/23 11:59 11:59 11:59 11:59 Weight 138.6 kg Lab Results: Lab Results-Last 24 Hours 07/07/23 07/07/23 07/07/23 Range/Units 20:57 20:57 20:57 WBC 11.1 H (4.0-10.5) x10^3/uL RBC 4.88 (4.1-5.6) x10^6/uL Hgb 14.1 (12.5-18.0) g/dL Hct 43.1 (42-50) % MCV 88.3 (78-100) fL MCH 28.9 (26-32) pg MCHC 32.7 (32-36) g/dL RDW 13.2 (11.5-14.0) % Plt Count 280 (150-450) x10^3/uL MPV 10.3 (7.5-11.0) fL Gran % 55.9 (36.0-66.0) % Immature Gran % (Auto) 0.3 (0.00-0.4) % Nucleat RBC Rel Count 0.0 (0.00-0.1) % Eos # (Auto) 0.16 (0-0.5) x10^3/uL Immature Gran # (Auto) 0.03 (0.00-0.03) x10^3u/L Absolute Lymphs (auto) 3.62 (1.0-4.6) x10^3/uL Absolute Monos (auto) 1.02 (0.0-1.3) x10^3/uL Absolute Nucleated RBC 0.00 (0.00-0.01) x10^3u/L Lymphocytes % 32.6 (24.0-44.0) % Monocytes % 9.2 (0.0-12.0) % Eosinophils % 1.4 (0.00-5.0) % Basophils % 0.6 (0.0-0.4) % Absolute Granulocytes 6.22 (1.4-6.9) x10^3/uL Basophils # 0.07 (0-0.4) x10^3/uL D-Dimer < 0.19 (0.0-0.50) mg/L Sodium 138 (137-145) mmol/L Potassium 4.6 (3.5-5.1) mmol/L Chloride 104 (98-107) mmol/L Carbon Dioxide 27 (22-30) mmol/L Anion Gap 11.4 (5-15) MEQ/L BUN 23 H (9-20) mg/dL Creatinine 0.64 L (0.66-1.25) mg/dL Estimated GFR > 60.0 ML/MIN Glucose 120 H (74-106) mg/dL Hemoglobin A1c (4.5-6.0) % Calcium 8.7 (8.4-10.2) mg/dL Total Bilirubin 0.50 (0.2-1.3) mg/dL AST 27 (17-59) U/L ALT 24 (0-50) U/L Alkaline Phosphatase 73 (38-126) U/L Troponin I (0.000-0.034) ng/mL NT-Pro-B Natriuret Pep (<300) pg/mL Serum Total Protein 7.1 (6.3-8.2) g/dL Albumin 4.2 (3.5-5.0) g/dL 07/07/23 07/08/23 07/08/23 Range/Units 20:57 01:12 04:38 WBC 11.7 H (4.0-10.5) x10^3/uL RBC 4.53 (4.1-5.6) x10^6/uL Hgb 13.0 (12.5-18.0) g/dL Hct 40.2 L (42-50) % MCV 88.7 (78-100) fL MCH 28.7 (26-32) pg MCHC 32.3 (32-36) g/dL RDW 13.3 (11.5-14.0) % Plt Count 265 (150-450) x10^3/uL MPV 10.3 (7.5-11.0) fL Gran % 69.9 H (36.0-66.0) % Immature Gran % (Auto) 0.3 (0.00-0.4) % Nucleat RBC Rel Count 0.0 (0.00-0.1) % Eos # (Auto) 0.12 (0-0.5) x10^3/uL Immature Gran # (Auto) 0.04 H (0.00-0.03) x10^3u/L Absolute Lymphs (auto) 2.39 (1.0-4.6) x10^3/uL Absolute Monos (auto) 0.92 (0.0-1.3) x10^3/uL Absolute Nucleated RBC 0.00 (0.00-0.01) x10^3u/L Lymphocytes % 20.4 L (24.0-44.0) % Monocytes % 7.9 (0.0-12.0) % Eosinophils % 1.0 (0.00-5.0) % Basophils % 0.5 (0.0-0.4) % Absolute Granulocytes 8.18 H (1.4-6.9) x10^3/uL Basophils # 0.06 (0-0.4) x10^3/uL D-Dimer (0.0-0.50) mg/L Sodium (137-145) mmol/L Potassium (3.5-5.1) mmol/L Chloride (98-107) mmol/L Carbon Dioxide (22-30) mmol/L Anion Gap (5-15) MEQ/L BUN (9-20) mg/dL Creatinine (0.66-1.25) mg/dL Estimated GFR ML/MIN Glucose (74-106) mg/dL Hemoglobin A1c (4.5-6.0) % Calcium (8.4-10.2) mg/dL Total Bilirubin (0.2-1.3) mg/dL AST (17-59) U/L ALT (0-50) U/L Alkaline Phosphatase (38-126) U/L Troponin I < 0.012 < 0.012 (0.000-0.034) ng/mL NT-Pro-B Natriuret Pep < 20.0 (<300) pg/mL Serum Total Protein (6.3-8.2) g/dL Albumin (3.5-5.0) g/dL 07/08/23 Range/Units 04:38 WBC (4.0-10.5) x10^3/uL RBC (4.1-5.6) x10^6/uL Hgb (12.5-18.0) g/dL Hct (42-50) % MCV (78-100) fL MCH (26-32) pg MCHC (32-36) g/dL RDW (11.5-14.0) % Plt Count (150-450) x10^3/uL MPV (7.5-11.0) fL Gran % (36.0-66.0) % Immature Gran % (Auto) (0.00-0.4) % Nucleat RBC Rel Count (0.00-0.1) % Eos # (Auto) (0-0.5) x10^3/uL Immature Gran # (Auto) (0.00-0.03) x10^3u/L Absolute Lymphs (auto) (1.0-4.6) x10^3/uL Absolute Monos (auto) (0.0-1.3) x10^3/uL Absolute Nucleated RBC (0.00-0.01) x10^3u/L Lymphocytes % (24.0-44.0) % Monocytes % (0.0-12.0) % Eosinophils % (0.00-5.0) % Basophils % (0.0-0.4) % Absolute Granulocytes (1.4-6.9) x10^3/uL Basophils # (0-0.4) x10^3/uL D-Dimer (0.0-0.50) mg/L Sodium (137-145) mmol/L Potassium (3.5-5.1) mmol/L Chloride (98-107) mmol/L Carbon Dioxide (22-30) mmol/L Anion Gap (5-15) MEQ/L BUN (9-20) mg/dL Creatinine (0.66-1.25) mg/dL Estimated GFR ML/MIN Glucose (74-106) mg/dL Hemoglobin A1c 6.14 H (4.5-6.0) % Calcium (8.4-10.2) mg/dL Total Bilirubin (0.2-1.3) mg/dL AST (17-59) U/L ALT (0-50) U/L Alkaline Phosphatase (38-126) U/L Troponin I (0.000-0.034) ng/mL NT-Pro-B Natriuret Pep (<300) pg/mL Serum Total Protein (6.3-8.2) g/dL Albumin (3.5-5.0) g/dL Radiology Exams: Radiology Procedures Category Date Time Status ABDOMEN AND PELVIS W/0 CONTRAS [CT] Stat Exams 07/07/23 20:53 Completed CAROTID BILATERAL [US] Stat Exams 07/08/23 00:03 Ordered CHEST 1 VIEW (PORTABLE) Stat Exams 07/07/23 21:37 Taken ECHO W/2D AND DOPPLER [US] Routine Exams 07/08/23 00:00 Ordered Assessment/Plan (1) Chest pain, atypical Current Visit: Yes Status: Acute Assessment & Plan: -Trend troponins -ASA -Monitor on telemetry -Stress test -Echo -Carotid US Code(s): R07.89 - OTHER CHEST PAIN (2) Vertigo Current Visit: Yes Status: Acute Code(s): R42 - DIZZINESS AND GIDDINESS (3) Constipation Current Visit: Yes Status: Acute Assessment & Plan: -Bowel regimen Code(s): K59.00 - CONSTIPATION, UNSPECIFIED (4) Diabetes mellitus Current Visit: Yes Status: Acute Assessment & Plan: -Check A1c and lipid panel Code(s): E11.9 - TYPE 2 DIABETES MELLITUS WITHOUT COMPLICATIONS (5) HTN (hypertension) Current Visit: Yes Status: Acute Assessment & Plan: -Continue home medicine Code(s): I10 - ESSENTIAL (PRIMARY) HYPERTENSION (6) HLD (hyperlipidemia) Current Visit: Yes Status: Acute Assessment & Plan: -Continue home medicine Code(s): E78.5 - HYPERLIPIDEMIA, UNSPECIFIED (7) COPD (chronic obstructive pulmonary disease) Current Visit: Yes Status: Acute Assessment & Plan: -does not appear to be in exacerbation -titrate oxygen for goal of >92%, continue cpap at [facility] for GRISELDA (8) GRISELDA (obstructive sleep apnea) Current Visit: Yes Status: Acute Assessment & Plan: -cpap continue Code(s): G47.33 - OBSTRUCTIVE SLEEP APNEA (ADULT) (PEDIATRIC)
[2023-07-08 05:23] VITALS: RESP 17
[2023-07-08 07:08] VITALS: TEMP 97.1
[2023-07-08] MEDS ORDERED: Glucophage 500 MG PO SCH (08:00)
[2023-07-08] MEDS: HUMALOG SQ SCH ×2 (08:02→11:49)
--- NOTE | 2023-07-08 08:34 | XRAY ---
Indication: Chest pain and short of breath. Comparison: August 14, 2022 Portable chest unchanged again demonstrating minimal left base subsegmental atelectasis/scarring. Remaining heart, lungs, and bony thorax unremarkable. No new/acute findings.
[2023-07-08] MEDS ORDERED: Cozaar 50 MG PO SCH ×2 (10:00)
[2023-07-08] MEDS ORDERED: ECOTRIN 81 MG PO SCH (10:00)
[2023-07-08] MEDS ORDERED: Protonix 20MG Tablet PO SCH (10:00)
[2023-07-08] MEDS ORDERED: ENOXAPARIN SODIUM SQ SCH (10:00)
--- NOTE | 2023-07-08 11:10 | XRAY ---
Indication: Vertigo. Two-dimensional sonogram and color Doppler imaging of the carotid arteries in the neck performed. Comparison: None Examination of the right carotid circulation demonstrates widely patent common carotid, carotid bulb, internal carotid, and external carotid arteries. PSV of the CCA is 66 cm/s. PSV of the ICA is 64 cm/s. ICA/CCA ratio is 1.0. Normal antegrade vertebral artery flow. Examination of the left carotid circulation demonstrate widely patent common carotid, carotid bulb, internal carotid, and external carotid arteries. PSV of the CCA is 65 cm/s. PSV of the ICA is 69 cm/s. ICA/CCA ratio is 1.1. Normal antegrade vertebral bilateral flow. Impression: Widely patent carotid arteries of the neck bilaterally. Velocity measurements and ratios are also negative for hemodynamically significant flow-limiting stenosis.
[2023-07-08 11:18] VITALS: BP 140/77; PULSE 64; O2SAT 97
--- NOTE | 2023-07-08 11:35 | PCM.DS ---
Discharge Summary Date of Admission: 07/07/23 22:42 Date of Discharge: 07/08/23 Admitting Physician: CARRILLO DELCID MD Primary Care Provider: IESHA OBREGON MARK Allergies Allergies No Known Drug Allergies Allergy (Verified 07/07/23 20:38) Hospital Summary - Hospital Course Hospital Course: 52-year-old male admitted for out chest pain. He has past medical history of hypertension, diabetes, hyperlipidemia, Covid in 01/29 with persistent low energy for which he has seen his PCP for and labs workup unrevealing, GRISELDA on CAP, mild COPD on PFTs he is scheduled for echo and stress test. He presented to the ED 07/07 for evaluation of chest pain with exertion x1 day. He states he was walking in driveway to stimulate his bowel this evening and with walking. In the driveway he began having belching episodes, vertigo with looking to the left and chest pressure which improved with rest. He also reported abdominal pain and constipation. On arrival his he was afebrile, heart rate 98, blood pressure 185/139. Labs significant for WBC 11, hemoglobin 14, platelets 280, creatinine 0.64. Troponin negative, NT proBNP negative, D-dimer negative. EKG Interpreted RATE (73), Sinus Rhythm, Left [place] Deviation, NORMAL INTERVALS CT abdomen pelvis showed no acute pathology mildly enlarged prostate and a 4 mm nonobstructing right renal lower pole calculus and hepatomegaly. Chest x-ray with no acute pathology. CT head is negative. Carotid US unremarkable. Echo pending, advised follow up with PCP. No longer having cp/tightness. Vertigo is positional only. Will send home with meclizine. Home exercises given to patient to help with the BPV. Patient does have stress test scheduled already as OP which I advised he obtain as scheduled. New Diagnosis: chest pain/benign positional vertigo New Medications: Meclizine Follow Up: PCP/cardiology, follows with Ashok Results pending: Echo Latest Assessment & Plan (1) Chest pain, atypical Current Visit: Yes Status: Acute Assessment & Plan: -Trend troponins -ASA -Monitor on telemetry -Stress test -Echo -Carotid US Code(s): R07.89 - OTHER CHEST PAIN (2) Vertigo Current Visit: Yes Status: Acute Code(s): R42 - DIZZINESS AND GIDDINESS (3) Constipation Current Visit: Yes Status: Acute Assessment & Plan: -Bowel regimen Code(s): K59.00 - CONSTIPATION, UNSPECIFIED (4) Diabetes mellitus Current Visit: Yes Status: Acute Assessment & Plan: -Check A1c and lipid panel Code(s): E11.9 - TYPE 2 DIABETES MELLITUS WITHOUT COMPLICATIONS (5) HTN (hypertension) Current Visit: Yes Status: Acute Assessment & Plan: -Continue home medicine Code(s): I10 - ESSENTIAL (PRIMARY) HYPERTENSION (6) HLD (hyperlipidemia) Current Visit: Yes Status: Acute Assessment & Plan: -Continue home medicine Code(s): E78.5 - HYPERLIPIDEMIA, UNSPECIFIED (7) COPD (chronic obstructive pulmonary disease) Current Visit: Yes Status: Acute Assessment & Plan: -does not appear to be in exacerbation -titrate oxygen for goal of >92%, continue cpap at [facility] for GRISELDA (8) GRISELDA (obstructive sleep apnea) Current Visit: Yes Status: Acute Assessment & Plan: -cpap continue I spent 35 minutes [id number] with the patient on the day of discharge performing discharge exam, discussing hospital stay and discharge instructions with patient and caregivers, preparation of discharge records, prescriptions & referral forms and addressing any questions/concerns the patient had as documented above. - Vitals & Intake/Output Vital Signs: Vital Signs Temperature 97.1 F 07/08/23 11:17 Pulse Rate 64 07/08/23 11:17 Respiratory Rate 17 07/08/23 11:17 Blood Pressure 140/77 07/08/23 11:17 O2 Sat by Pulse Oximetry 97 07/08/23 11:17 Intake & Output: Intake & Output 07/05/23 07/06/23 07/07/23 07/08/23 11:59 11:59 11:59 11:59 Intake Total 240 Balance 240 Weight 138.6 kg - Lab Result Diagrams: 07/08/23 04:38 07/08/23 04:38 Lab Results-Last 24 Hrs: Lab Results-Last 24 Hours 07/07/23 07/07/23 07/07/23 Range/Units 20:57 20:57 20:57 WBC 11.1 H (4.0-10.5) x10^3/uL RBC 4.88 (4.1-5.6) x10^6/uL Hgb 14.1 (12.5-18.0) g/dL Hct 43.1 (42-50) % MCV 88.3 (78-100) fL MCH 28.9 (26-32) pg MCHC 32.7 (32-36) g/dL RDW 13.2 (11.5-14.0) % Plt Count 280 (150-450) x10^3/uL MPV 10.3 (7.5-11.0) fL Gran % 55.9 (36.0-66.0) % Immature Gran % (Auto) 0.3 (0.00-0.4) % Nucleat RBC Rel Count 0.0 (0.00-0.1) % Eos # (Auto) 0.16 (0-0.5) x10^3/uL Immature Gran # (Auto) 0.03 (0.00-0.03) x10^3u/L Absolute Lymphs (auto) 3.62 (1.0-4.6) x10^3/uL Absolute Monos (auto) 1.02 (0.0-1.3) x10^3/uL Absolute Nucleated RBC 0.00 (0.00-0.01) x10^3u/L Lymphocytes % 32.6 (24.0-44.0) % Monocytes % 9.2 (0.0-12.0) % Eosinophils % 1.4 (0.00-5.0) % Basophils % 0.6 (0.0-0.4) % Absolute Granulocytes 6.22 (1.4-6.9) x10^3/uL Basophils # 0.07 (0-0.4) x10^3/uL D-Dimer < 0.19 (0.0-0.50) mg/L Sodium 138 (137-145) mmol/L Potassium 4.6 (3.5-5.1) mmol/L Chloride 104 (98-107) mmol/L Carbon Dioxide 27 (22-30) mmol/L Anion Gap 11.4 (5-15) MEQ/L BUN 23 H (9-20) mg/dL Creatinine 0.64 L (0.66-1.25) mg/dL Estimated GFR > 60.0 ML/MIN Glucose 120 H (74-106) mg/dL POC Glucometer (74 to 106) mg/dL Hemoglobin A1c (4.5-6.0) % Calcium 8.7 (8.4-10.2) mg/dL Magnesium (1.6-2.3) mg/dL Total Bilirubin 0.50 (0.2-1.3) mg/dL AST 27 (17-59) U/L ALT 24 (0-50) U/L Alkaline Phosphatase 73 (38-126) U/L Troponin I (0.000-0.034) ng/mL NT-Pro-B Natriuret Pep (<300) pg/mL Serum Total Protein 7.1 (6.3-8.2) g/dL Albumin 4.2 (3.5-5.0) g/dL Triglycerides (30-150) mg/dL Cholesterol (50-200) mg/dL LDL Cholesterol (30-100) mg/dL HDL Cholesterol (40-60) mg/dL Heart Disease Risk Ratio 07/07/23 07/08/23 07/08/23 Range/Units 20:57 01:12 04:38 WBC (4.0-10.5) x10^3/uL RBC (4.1-5.6) x10^6/uL Hgb (12.5-18.0) g/dL Hct (42-50) % MCV (78-100) fL MCH (26-32) pg MCHC (32-36) g/dL RDW (11.5-14.0) % Plt Count (150-450) x10^3/uL MPV (7.5-11.0) fL Gran % (36.0-66.0) % Immature Gran % (Auto) (0.00-0.4) % Nucleat RBC Rel Count (0.00-0.1) % Eos # (Auto) (0-0.5) x10^3/uL Immature Gran # (Auto) (0.00-0.03) x10^3u/L Absolute Lymphs (auto) (1.0-4.6) x10^3/uL Absolute Monos (auto) (0.0-1.3) x10^3/uL Absolute Nucleated RBC (0.00-0.01) x10^3u/L Lymphocytes % (24.0-44.0) % Monocytes % (0.0-12.0) % Eosinophils % (0.00-5.0) % Basophils % (0.0-0.4) % Absolute Granulocytes (1.4-6.9) x10^3/uL Basophils # (0-0.4) x10^3/uL D-Dimer (0.0-0.50) mg/L Sodium (137-145) mmol/L Potassium (3.5-5.1) mmol/L Chloride (98-107) mmol/L Carbon Dioxide (22-30) mmol/L Anion Gap (5-15) MEQ/L BUN (9-20) mg/dL Creatinine (0.66-1.25) mg/dL Estimated GFR ML/MIN Glucose (74-106) mg/dL POC Glucometer (74 to 106) mg/dL Hemoglobin A1c (4.5-6.0) % Calcium (8.4-10.2) mg/dL Magnesium (1.6-2.3) mg/dL Total Bilirubin (0.2-1.3) mg/dL AST (17-59) U/L ALT (0-50) U/L Alkaline Phosphatase (38-126) U/L Troponin I < 0.012 < 0.012 < 0.012 (0.000-0.034) ng/mL NT-Pro-B Natriuret Pep < 20.0 (<300) pg/mL Serum Total Protein (6.3-8.2) g/dL Albumin (3.5-5.0) g/dL Triglycerides (30-150) mg/dL Cholesterol (50-200) mg/dL LDL Cholesterol (30-100) mg/dL HDL Cholesterol (40-60) mg/dL Heart Disease Risk Ratio 07/08/23 07/08/23 07/08/23 Range/Units 04:38 04:38 04:38 WBC 11.7 H (4.0-10.5) x10^3/uL RBC 4.53 (4.1-5.6) x10^6/uL Hgb 13.0 (12.5-18.0) g/dL Hct 40.2 L (42-50) % MCV 88.7 (78-100) fL MCH 28.7 (26-32) pg MCHC 32.3 (32-36) g/dL RDW 13.3 (11.5-14.0) % Plt Count 265 (150-450) x10^3/uL MPV 10.3 (7.5-11.0) fL Gran % 69.9 H (36.0-66.0) % Immature Gran % (Auto) 0.3 (0.00-0.4) % Nucleat RBC Rel Count 0.0 (0.00-0.1) % Eos # (Auto) 0.12 (0-0.5) x10^3/uL Immature Gran # (Auto) 0.04 H (0.00-0.03) x10^3u/L Absolute Lymphs (auto) 2.39 (1.0-4.6) x10^3/uL Absolute Monos (auto) 0.92 (0.0-1.3) x10^3/uL Absolute Nucleated RBC 0.00 (0.00-0.01) x10^3u/L Lymphocytes % 20.4 L (24.0-44.0) % Monocytes % 7.9 (0.0-12.0) % Eosinophils % 1.0 (0.00-5.0) % Basophils % 0.5 (0.0-0.4) % Absolute Granulocytes 8.18 H (1.4-6.9) x10^3/uL Basophils # 0.06 (0-0.4) x10^3/uL D-Dimer (0.0-0.50) mg/L Sodium 138 (137-145) mmol/L Potassium 4.3 (3.5-5.1) mmol/L Chloride 104 (98-107) mmol/L Carbon Dioxide 28 (22-30) mmol/L Anion Gap 9.9 (5-15) MEQ/L BUN 26 H (9-20) mg/dL Creatinine 0.68 (0.66-1.25) mg/dL Estimated GFR > 60.0 ML/MIN Glucose 114 H (74-106) mg/dL POC Glucometer (74 to 106) mg/dL Hemoglobin A1c 6.14 H (4.5-6.0) % Calcium 8.5 (8.4-10.2) mg/dL Magnesium (1.6-2.3) mg/dL Total Bilirubin 0.40 (0.2-1.3) mg/dL AST 19 (17-59) U/L ALT 21 (0-50) U/L Alkaline Phosphatase 78 (38-126) U/L Troponin I (0.000-0.034) ng/mL NT-Pro-B Natriuret Pep (<300) pg/mL Serum Total Protein 6.5 (6.3-8.2) g/dL Albumin 3.8 (3.5-5.0) g/dL Triglycerides 101 (30-150) mg/dL Cholesterol 86 (50-200) mg/dL LDL Cholesterol 46 (30-100) mg/dL HDL Cholesterol 37 L (40-60) mg/dL Heart Disease Risk Ratio 2.3 07/08/23 07/08/23 Range/Units 04:48 07:18 WBC (4.0-10.5) x10^3/uL RBC (4.1-5.6) x10^6/uL Hgb (12.5-18.0) g/dL Hct (42-50) % MCV (78-100) fL MCH (26-32) pg MCHC (32-36) g/dL RDW (11.5-14.0) % Plt Count (150-450) x10^3/uL MPV (7.5-11.0) fL Gran % (36.0-66.0) % Immature Gran % (Auto) (0.00-0.4) % Nucleat RBC Rel Count (0.00-0.1) % Eos # (Auto) (0-0.5) x10^3/uL Immature Gran # (Auto) (0.00-0.03) x10^3u/L Absolute Lymphs (auto) (1.0-4.6) x10^3/uL Absolute Monos (auto) (0.0-1.3) x10^3/uL Absolute Nucleated RBC (0.00-0.01) x10^3u/L Lymphocytes % (24.0-44.0) % Monocytes % (0.0-12.0) % Eosinophils % (0.00-5.0) % Basophils % (0.0-0.4) % Absolute Granulocytes (1.4-6.9) x10^3/uL Basophils # (0-0.4) x10^3/uL D-Dimer (0.0-0.50) mg/L Sodium (137-145) mmol/L Potassium (3.5-5.1) mmol/L Chloride (98-107) mmol/L Carbon Dioxide (22-30) mmol/L Anion Gap (5-15) MEQ/L BUN (9-20) mg/dL Creatinine (0.66-1.25) mg/dL Estimated GFR ML/MIN Glucose (74-106) mg/dL POC Glucometer 106 (74 to 106) mg/dL Hemoglobin A1c (4.5-6.0) % Calcium (8.4-10.2) mg/dL Magnesium 2.2 (1.6-2.3) mg/dL Total Bilirubin (0.2-1.3) mg/dL AST (17-59) U/L ALT (0-50) U/L Alkaline Phosphatase (38-126) U/L Troponin I (0.000-0.034) ng/mL NT-Pro-B Natriuret Pep (<300) pg/mL Serum Total Protein (6.3-8.2) g/dL Albumin (3.5-5.0) g/dL Triglycerides (30-150) mg/dL Cholesterol (50-200) mg/dL LDL Cholesterol (30-100) mg/dL HDL Cholesterol (40-60) mg/dL Heart Disease Risk Ratio Micro Results-Entire Visit: Accuchecks Date 07/08/23 Time 07:22 - Radiology Exams Ordered Rad Exams-Entire Visit: Radiology Procedures Category Date Time Status ABDOMEN AND PELVIS W/0 CONTRAS [CT] Stat Exams 07/07/23 20:53 Completed CAROTID BILATERAL [US] Stat Exams 07/08/23 00:03 Completed CHEST 1 VIEW (PORTABLE) Stat Exams 07/07/23 21:37 Completed ECHO W/2D AND DOPPLER [US] Routine Exams 07/08/23 00:00 Taken HEAD WITHOUT CONTRAST [CT] Stat Exams 07/08/23 11:30 Ordered - Procedures and Test Procedures and Tests throughout Hospitalization: Therapy Orders & Screens 07/07/23 23:40 BiPap/CPAP ROUTINE Comment: Diagnosis: acs, exertional chest pain/dizziness 07/08/23 00:01 EKG PRN Comment: Diagnosis: acs, exertional chest pain/dizziness Discharge Exam General Appearance: no apparent distress Neurologic Exam: alert, oriented x 3, cooperative Eye Exam: PERRL Ears, Nose, Throat Exam: normal ENT inspection Neck Exam: normal inspection Respiratory Exam: normal breath sounds, lungs clear Cardiovascular Exam: regular rate/rhythm, normal heart sounds Gastrointestinal/Abdomen Exam: soft, normal bowel sounds Male Genitalia Exam: deferred Rectal Exam: deferred Back Exam: normal inspection Extremity Exam: normal inspection Skin Exam: normal color Final Diagnosis/Problem List - Final Discharge Diagnosis/Problem (1) Chest pain, atypical Current Visit: Yes Status: Resolved Code(s): R07.89 - OTHER CHEST PAIN (2) Vertigo Current Visit: Yes Status: Chronic Code(s): R42 - DIZZINESS AND GIDDINESS (3) Constipation Current Visit: Yes Status: Chronic Code(s): K59.00 - CONSTIPATION, UNSPECIFIED (4) Diabetes mellitus Current Visit: Yes Status: Chronic Code(s): E11.9 - TYPE 2 DIABETES MELLITUS WITHOUT COMPLICATIONS (5) HTN (hypertension) Current Visit: Yes Status: Chronic Code(s): I10 - ESSENTIAL (PRIMARY) HYPERTENSION (6) HLD (hyperlipidemia) Current Visit: Yes Status: Chronic Code(s): E78.5 - HYPERLIPIDEMIA, UNSPECIFIED (7) COPD (chronic obstructive pulmonary disease) Current Visit: Yes Status: Chronic (8) GRISELDA (obstructive sleep apnea) Current Visit: Yes Status: Acute Code(s): G47.33 - OBSTRUCTIVE SLEEP APNEA (ADULT) (PEDIATRIC) - Discharge Disposition: Home, Self-Care Condition: Stable Prescriptions: New Meclizine HCl 12.5 mg PO BID 30 Days #60 tablet Continue Metformin HCl 500 mg [Glucophage 500 MG] 1 tab PO BID Atorvastatin Calcium 20 mg PO HS Losartan Potassium 25 mg PO DAILY Pantoprazole 20 mg [Protonix 20MG Tablet] 20 mg PO DAILY Ergocalciferol (Vitamin D2) [Vitamin D2] 1 cap PO WEEKLY Follow up with: IESHA OBREGON MD [Primary Care Provider] - 07/15/23 10:00 am FRANCOIS ARENAS MD [CONSULTING PHYSICIAN] - 07/29/23 9:00 am (WILL SEE NURSE [employer]OR [employer]SPORT INSPECTOR PER DR DR ARENAS. EUGENIO LO IS THE [employer]OR TRANSP[employer] INSPECTOR. )
[2023-07-08] MEDS ORDERED: Ativan 0.5 MG PO ONE (11:50)
--- NOTE | 2023-07-08 12:52 | XRAY ---
Indication: Vertigo. Multiple contiguous axial images obtained through the head without contrast. Comparison: December 18, 2021 Normal appearing brain parenchyma, ventricles, and bony calvarium. Visualized paranasal sinuses and mastoid air cells are clear. Impression: Continued normal CT head without contrast exam.
[2023-07-08] MEDS ORDERED: ZOCOR 20MG PO SCH (22:00)
[2023-07-14] MEDS ORDERED: VITAMIN D2 PO SCH (10:00)
== END 2023-07-08 14:11 | disposition home or self-care (01) ==
LOC: ED 20:35 → MED SURG 22:42
PROVIDERS: ADMIT Internal Medicine; ATTEND Internal Medicine
DX: R07.89 Other chest pain (principal); R42 Dizziness and giddiness; K59.00 Constipation, unspecified; E11.9 Type 2 diabetes mellitus without complications; I10 Essential (primary) hypertension; E78.5 Hyperlipidemia, unspecified; J44.9 Chronic obstructive pulmonary disease, unspecified; G47.33 Obstructive sleep apnea (adult) (pediatric); Z79.899 Other long term (current) drug therapy; Z20.828 Contact with and (suspected) exposure to other viral communicable diseases
CPT/HCPCS: 36000; 36415; 70450; 71045; 74176; 80053; 80061; 82947; 83036; 83721; 83735; 83880; 84484; 85025; 85379; 93005; 93041; 93306; 93880; 94760; 96374; 99285; Q3014; 93268; J1650; J2405; A9270-GY; G0378